=== PATIENT | male | born 1955 | race Caucasian/White ===

== ENCOUNTER 2018-10-28 23:43 | Emergency (ER) | payer OTHER ==
[2018-10-28 23:59] VITALS: BP 142/80; PULSE 78; TEMP 98.8; BMI 28.8
[2018-10-29] MEDS ORDERED: KETOROLAC TROMETHAMINE 30 MG/1 ML VIAL IM ONE (00:54)
[2018-10-29] MEDS ORDERED: KETOROLAC TROMETHAMINE 60 MG/2 ML VIAL ONE (00:56)
[2018-10-29] MEDS ORDERED: diazePAM 5 MG TABLET ONE (01:02)
[2018-10-29] MEDS ORDERED: diazePAM 5 MG TABLET PO ONE (01:02)
[2018-10-29 01:28] LABS: BASO % 0.4 % (0-2.0); EOS % 4.2 % (0-4.5); HEMATOCRIT 38.2 % (35.4-49); HEMOGLOBIN 13.8 GM/dL (11.7-16.9); LYMPH % 9.4 % (8-40); MCH 32.3 pg (25.7-33.7); MCHC 36.1 g/dl (32.0-35.9); MEAN CELL VOLUME 89.6 fl (80-96); MEAN PLT VOLUME 7.7 fl (7.5-11.1); MONO % 13.3 % (3.8-10.2); NEUT % 72.7 % (42.8-82.8); PLATELET COUNT 217 K/MM3 (134-434); RBC 4.27 M/mm3 (4.00-5.60); RDW 12.9 % (11.9-15.9); WHITE BLOOD COUNT 8.5 K/mm3 (4.0-10.0)
--- NOTE | 2018-10-29 01:50 | PDOC ---
History of Present Illness - General Chief Complaint: Pain Stated Complaint: Head/Neck problem Time Seen by Provider: 10/29/18 00:15 History Source: Patient Exam Limitations: No Limitations Past History - Past Medical History Allergies/Adverse Reactions: Allergies Allergy/AdvReac Type Severity Reaction Status Date / Time meperidine HCl [From Demerol] Allergy Severe SYNCOPE Verified 10/28/18 23:56 Home Medications: Ambulatory Orders Losartan Potassium [Cozaar] 100 mg PO DAILY 05/15/13 Naproxen [Naprosyn -] 500 mg PO BID #20 tablet 06/21/16 Amlodipine Besylate 5 mg PO DAILY 10/29/18 Diazepam [Valium] 5 mg PO Q8H PRN #12 tablet MDD 3 10/29/18 Ezetimibe 10 mg PO DAILY 10/29/18 Hydrochlorothiazide 12.5 mg PO DAILY 10/29/18 Metformin HCl [Glucophage] 500 mg PO DAILY 10/29/18 Metoprolol Tartrate 50 mg PO DAILY 10/29/18 Rosuvastatin Calcium 10 mg PO DAILY 10/29/18 COPD: No Diabetes: Yes HTN: Yes Hypercholesterolemia: Yes - Surgical History Appendectomy: Yes - Immunization History Immunization Up to Date: Yes - Suicide/Smoking/Psychosocial Hx Smoking Status: No Smoking History: Never smoked Have you smoked in the past 12 months: No Number of Cigarettes Smoked Daily: 0 Information on smoking cessation initiated: No Hx Alcohol Use: No Drug/Substance Use Hx: No Substance Use Type: None *Physical Exam - Vital Signs Last Vital Signs Temp Pulse Resp BP Pulse Ox 98.8 F 78 20 142/80 97 10/28/18 23:56 10/28/18 23:56 10/28/18 23:56 10/28/18 23:56 10/28/18 23:56 - Physical Exam General Appearance: No: Apparent Distress HEENT: positive: EOMI, MARYSOL Neck: positive: Decreased range of motion, Rigidity, Other (Patient with pain on movement of neck; particularly with pain along L lateral aspect of neck, no midline tenderness noted). negative: Tender midline Respiratory/Chest: positive: Lungs Clear, Normal Breath Sounds. negative: Respiratory Distress Cardiovascular: positive: Regular Rhythm, Regular Rate, S1, S2. negative: Murmur Gastrointestinal/Abdominal: positive: Normal Bowel Sounds, Soft. 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 NML intact, Fully Oriented, Alert, Normal Mood/ Affect, Normal Response, Motor Strength 5/5 Moderate Sedation - Procedure Monitoring Vital Signs: Procedure Monitoring Vital Signs Temperature 98.8 F 10/28/18 23:56 Pulse Rate 78 10/28/18 23:56 Respiratory Rate 20 10/28/18 23:56 Blood Pressure 142/80 10/28/18 23:56 O2 Sat by Pulse Oximetry (%) 97 10/28/18 23:56 ED Treatment Course - LABORATORY CBC & Chemistry Diagram: 10/29/18 01:18 10/29/18 01:18 - ADDITIONAL ORDERS Additional order review: 10/29/18 01:18 RBC 4.27 MCV 89.6 MCHC 36.1 H RDW 12.9 MPV 7.7 Neutrophils % 72.7 D Lymphocytes % 9.4 D Monocytes % 13.3 H Eosinophils % 4.2 Basophils % 0.4 - Medications Given in the ED: ED Medications Discontinued Medications Generic Name Dose Route Start Last Admin Trade Name Araceli PRN Reason Stop Dose Admin Diazepam 5 mg 10/29/18 01:02 10/29/18 01:16 Valium - PO 10/29/18 01:03 5 mg ONCE ONE Administration Ketorolac Tromethamine 30 mg 10/29/18 00:54 10/29/18 00:59 Toradol Injection - IM 10/29/18 00:55 30 mg ONCE ONE Administration Medical Decision Making - Medical Decision Making 63 y/o M hx of HTN, HLD, pre DM, sciatica, C4-C5 herniated disc presents with neck stiffness that started at 5 PM. Denies trauma. Mentions having some URI symptoms for the past 4 days with dry cough, nasal congestion and sore throat. Mentions he usually gets sick at least once a year and this felt like his usual cold; was taking cough medication at home with some improvement in cough. However, neck stiffness just came about abruptly. Took an Alleve around 5 PM without much improvement so came to ED. Denies fever, sob, cp, abd pain, n/v, numbness/tingling/weakness of extremities. Initial concern for meningitis given stiffness on exam though patient afebrile Patient given Toradol and Valium. Labs drawn with no leukocytosis noted; minimally elevated LFTs noted which patient advised to f/u with his PCP for. On reassessment, patient felt better and able to move his neck a lot better than before. Will D/C patient on Valium Return precautions discussed 10/29/18 01:50 *DC/Admit/Observation/Transfer Diagnosis at time of Disposition: Muscle spasm - Discharge Dispostion Disposition: HOME Condition at time of disposition: Improved Decision to Admit order: No - Prescriptions Prescriptions: Diazepam [Valium] 5 mg PO Q8H PRN #12 tablet MDD 3 PRN Reason: Muscle Spasms - Referrals Referrals: Mark Paiz MD [Primary Care Provider] - 2 Days - Patient Instructions Additional Instructions: Thank you for choosing [facility]. It was a pleasure taking care of you. You were seen here for likely muscle spasm. You may take Motrin 600 mg every 4 hours by mouth as needed for mild to moderate pain. Take Motrin with food. Take Valium as needed for muscle spasms. This medication can make you drowsy. Please follow-up with your primary care doctor in a few days. Return to the Emergency Department if your symptoms worsen or persist, you have fever, increased stiffness of neck, shortness of breath, chest pain, severe abdominal pain, weakness of extremities (arms and/or legs), changes in vision or walking or other concerning symptoms. - Post Discharge Activity
[2018-10-29 02:06] LABS: ALBUMIN 3.5 g/dl (3.4-5.0); ALK PHOS 108 U/L (45-117); ANION GAP 6 MMOL/L (8-16); BILIRUBIN,TOTAL 0.5 mg/dL (0.2-1); BLOOD UREA NITROGEN 20 mg/dL (7-18); CALCIUM 8.6 mg/dL (8.5-10.1); CHLORIDE 100 mmol/L (98-107); CO2 30 mmol/L (21-32); CREATININE 1.3 mg/dL (0.55-1.3); GLUCOSE,RANDOM 130 mg/dL (74-106); POTASSIUM 4.1 mmol/L (3.5-5.1); SGOT/AST 80 U/L (15-37); SGPT/ALT 82 U/L (13-61); SODIUM 136 mmol/L (136-145); TOT PROT 7.2 g/dl (6.4-8.2)
== END 2018-10-29 02:52 | disposition home or self-care (01) ==
LOC: JER 23:43
PROC: 3E0233Z Introduction of Anti-inflammatory into Muscle, Percutaneous Approach (ICD-10-PCS; principal; 2018-10-28)
DX: M62.838 Other muscle spasm (principal); M50.221 Other cervical disc displacement at C4-C5 level; I10 Essential (primary) hypertension; E78.00 Pure hypercholesterolemia, unspecified; E11.9 Type 2 diabetes mellitus without complications; Z79.84 Long term (current) use of oral hypoglycemic drugs; M54.30 Sciatica, unspecified side
CPT/HCPCS: 36415; 80053; 85025; 87070; 87880; 99282-25

== ENCOUNTER 2018-10-29 17:17 | Inpatient (IN) | payer OTHER ==
--- NOTE | 2018-10-29 17:50 | PDOC ---
Rapid Medical Evaluation Chief Complaint: Pain, Acute Time Seen by Provider: 10/29/18 17:46 Medical Evaluation: Allergies Allergy/AdvReac Type Severity Reaction Status Date / Time meperidine HCl [From Demerol] Allergy Severe SYNCOPE Verified 10/28/18 23:56 10/29/18 17:47 I have performed a brief in-person evaluation of this patient. The patient presents with a CC of: neck pain HPI: Pt is a 63 YO male who states "I think I coughed and I now have neck pain x 2 days." Pt denies injury/trauma. Pt denies hx of IV drug use. Denies fever. Pain is a 10/10. 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 Pertinent PE: Skin: Clear Lungs: Clear Heart: RRR Abd: Soft nontender MS. Moves all extremities Neuro: Alert Psych: Age appropriate. The patient will proceed to main side for further evaluation. Discharge Disposition - Diagnosis Neck pain - Referrals - Patient Instructions - Post Discharge Activity
[2018-10-29 17:52] VITALS: BMI 28.8
--- NOTE | 2018-10-29 18:27 | PDOC ---
History of Present Illness - General Chief Complaint: Pain, Acute Stated Complaint: PCP SENT/HEAD AND NECK PAIN Time Seen by Provider: 10/29/18 17:46 - History of Present Illness Initial Comments: The patient is a 63M w/ a history of HTN and diverticulosis who presents for evaluation of 2d of neck pain and occipital FERGUSON. The patient reports that he has had a 'hacking' cough since Saturday. He states yesterday he began to experience L sided neck pain mino with coughing. He was evaluated here, had no leukocytosis , was treated with toradol and was discharged. Presents today with worsening neck pain, b/l. Pain worse with turning head left and right and with cough Denies fevers/chill, vision changes, chest pain, SOB, abdominal pain, N/V/C/D, or changes in sensation 10/29/18 18:31 Past History - Past Medical History Allergies/Adverse Reactions: Allergies Allergy/AdvReac Type Severity Reaction Status Date / Time meperidine HCl [From Demerol] Allergy Severe SYNCOPE Verified 10/29/18 17:47 Home Medications: Ambulatory Orders Losartan Potassium [Cozaar] 100 mg PO DAILY 05/15/13 Naproxen [Naprosyn -] 500 mg PO BID #20 tablet 06/21/16 Amlodipine Besylate 5 mg PO DAILY 10/29/18 Diazepam [Valium] 5 mg PO Q8H #12 tablet MDD 3 10/29/18 Ezetimibe 10 mg PO DAILY 10/29/18 Hydrochlorothiazide 12.5 mg PO DAILY 10/29/18 Metformin HCl [Glucophage] 500 mg PO DAILY 10/29/18 Metoprolol Tartrate 50 mg PO DAILY 10/29/18 Rosuvastatin Calcium 10 mg PO DAILY 10/29/18 COPD: No Diabetes: Yes HTN: Yes Hypercholesterolemia: Yes - Surgical History Appendectomy: Yes - Immunization History Immunization Up to Date: Yes - Suicide/Smoking/Psychosocial Hx Smoking Status: No Smoking History: Never smoked Have you smoked in the past 12 months: No Number of Cigarettes Smoked Daily: 0 Hx Alcohol Use: No Drug/Substance Use Hx: No Substance Use Type: None Review of Systems - Review of Systems Able to Perform ROS?: Yes Comments:: GENERAL/CONSTITUTIONAL: No fever or chills. No weakness HEAD, EYES, EARS, NOSE AND THROAT: No change in vision. No ear pain or discharge. CARDIOVASCULAR: No chest pain or shortness of breath RESPIRATORY: Denies cough, hemoptysis GASTROINTESTINAL: No nausea, vomiting, diarrhea or constipation GENITOURINARY: No dysuria, frequency, or change in urination MUSCULOSKELETAL: per HPI SKIN: No rash NEUROLOGIC: No headache, vertigo, loss of consciousness, or change in strength/ sensation ENDOCRINE: No increased thirst. No abnormal weight change HEMATOLOGIC/LYMPHATIC: No anemia, easy bleeding, or history of blood clots ALLERGIC/IMMUNOLOGIC: No hives or skin allergy 10/29/18 18:24 Is the patient limited Croatian proficient: No *Physical Exam - Vital Signs Last Vital Signs Temp Pulse Resp BP Pulse Ox 99.3 F 95 H 19 136/84 97 10/29/18 17:48 10/29/18 17:48 10/29/18 17:48 10/29/18 17:48 10/29/18 17:48 - Physical Exam Comments: GENERAL: Awake, alert, and fully oriented, in no acute distress HEAD: No signs of trauma, normocephalic, atraumatic EYES: PERRLA, EOMI, sclera anicteric, conjunctiva clear ENT: Hearing grossly normal, nares patent, oropharynx clear without exudates. Moist mucosa LUNGS: No distress, speaks full sentences, clear to auscultation bilaterally HEART: Regular rate and rhythm, normal S1 and S2, no murmurs appreciated, peripheral pulses normal and equal bilaterally ABDOMEN: Soft, nontender, normoactive bowel sounds. No guarding, no rebound EXTREMITIES : Normal inspection, Normal range of motion, no edema. No clubbing or cyanosis NEUROLOGICAL: Cranial nerves II through XII grossly intact. Normal speech, normal gait, no focal sensorimotor deficits SKIN: Warm, Dry, normal turgor, no rashes or lesions noted 10/29/18 18:25 Moderate Sedation - Procedure Monitoring Vital Signs: Procedure Monitoring Vital Signs Temperature 99.3 F 10/29/18 17:48 Pulse Rate 95 H 10/29/18 17:48 Respiratory Rate 19 10/29/18 17:48 Blood Pressure 136/84 10/29/18 17:48 O2 Sat by Pulse Oximetry (%) 97 10/29/18 17:48 ED Treatment Course - LABORATORY CBC & Chemistry Diagram: 10/31/18 06:15 10/31/18 06:15 Medical Decision Making - Medical Decision Making The patient is a 63M w/ a history of diverticulosis who presents for 2days of worsening paraspinous neck pain s/p 5d of vigorous coughing sent in by PCP for CT and LP 10/29/18 18:26 No leukocytosis No anemia Sent for CT Tylenol for pain 10/29/18 19:[address] (without contrast) 10/29/2018 @ 2039 The soft tissue structures demonstrate no discrete noncontrast pathology. If there is ongoing symptomatology or palpable abnormality MRI evaluation is suggested, nonemergent unless otherwise clinically indicated. Moderate C5-C6 degenerative disc space narrowing is noted. No facet arthropathy is seen. Mild to moderate left C5-C6 foraminal stenosis is noted. No central canal stenosis HEAD CT WITHOUT CONTRAST 10/29/2018 No intraparenchymal hemorrhage is seen. There is no CT evidence of subarachnoid hemorrhage. Correlate clinically. No extra-axial fluid collection is noted. There is no obvious mass lesion on noncontrast imaging. No definite abnormal attenuation is seen. The ventricles and cisterns appear unremarkable. No calvarial defect is noted. Mild bilateral ethmoid and right maxillary sinus mucosal thickening is seen. A 1 cm right maxillary sinus mucus retention cyst/polyp is noted. Impression: No CT evidence of acute intracranial pathology. 10/29/18 21:27 Cr 1.4 near baseline mild transaminitis lytes wnl 10/29/18 21:46 s/p LP with clear tap, sent for CSF profile, culture, protein, HSV 10/29/18 23:04 I have transferred care of the patient to Dr. Churchill and discussed the clinical presentation, work-up and ED course thus far. *DC/Admit/Observation/Transfer Diagnosis at time of Disposition: Neck pain - Discharge Dispostion Condition at time of disposition: Good Decision to Admit order: Yes - Referrals - Patient Instructions - Post Discharge Activity
[2018-10-29] MEDS ORDERED: KETOROLAC TROMETHAMINE 30 MG/1 ML VIAL IM ONE (18:49)
[2018-10-29] MEDS ORDERED: ACETAMINOPHEN 325 MG TABLET (FP) PO ONE (18:51)
[2018-10-29] MEDS ORDERED: ACETAMINOPHEN 1000 MG/100 ML VIAL (NON FORMULARY) IVPB ONE (18:52)
[2018-10-29] MEDS ORDERED: ACETAMINOPHEN INJECTION 100 ML IVPB ONE (19:04)
[2018-10-29 19:21] LABS: BASO % 0.4 % (0-2.0); EOS % 3.5 % (0-4.5); HEMATOCRIT 40.6 % (35.4-49); HEMOGLOBIN 14.4 GM/dL (11.7-16.9); LYMPH % 8.3 % (8-40); MCHC 35.6 g/dl (32.0-35.9); MEAN CELL VOLUME 89.9 fl (80-96); MONO % 13.3 % (3.8-10.2); NEUT % 74.5 % (42.8-82.8); PLATELET COUNT 256 K/MM3 (134-434); RBC 4.51 M/mm3 (4.00-5.60); RDW 12.9 % (11.9-15.9); WHITE BLOOD COUNT 9.2 K/mm3 (4.0-10.0)
[2018-10-29 20:01] LABS: ALK PHOS 122 U/L (45-117); ANION GAP 8 MMOL/L (8-16); BILIRUBIN,TOTAL 0.5 mg/dL (0.2-1); BLOOD UREA NITROGEN 21 mg/dL (7-18); CALCIUM 8.9 mg/dL (8.5-10.1); CHLORIDE 101 mmol/L (98-107); CO2 29 mmol/L (21-32); CREATININE 1.4 mg/dL (0.55-1.3); GLUCOSE,RANDOM 126 mg/dL (74-106); POTASSIUM 4.1 mmol/L (3.5-5.1); SGOT/AST 65 U/L (15-37); SGPT/ALT 94 U/L (13-61); SODIUM 139 mmol/L (136-145); TOT PROT 7.9 g/dl (6.4-8.2)
[2018-10-29] MEDS ORDERED: KETOROLAC TROMETHAMINE 30 MG/1 ML VIAL IVPUSH ONE (21:32)
[2018-10-29] MEDS ORDERED: KETOROLAC TROMETHAMINE 30 MG/1 ML VIAL ONE (21:34)
[2018-10-29] MEDS ORDERED: MIDAZOLAM HCL 2 MG/2 ML SINGLE DOSE VIAL IVPUSH ONE (21:51)
[2018-10-29] MEDS ORDERED: MIDAZOLAM HCL 2 MG/2 ML SINGLE DOSE VIAL ONE (21:52)
--- NOTE | 2018-10-29 22:02 | PDOC ---
Attending Attestation - Resident Resident Name: Damian Parker - ED Attending Attestation I have performed the following: I have examined & evaluated the patient, The case was reviewed & discussed with the resident, I agree w/resident's findings & plan, Exceptions are as noted - HPI HPI: 10/29/18 22:03 63yo M hx HTN, HL, NIDDM presents to the ED with worsening neck pain and stiffness for 3 days. Pt reports neck pain initially began on L side, but now is on R side of neck. Reports pain when moving neck in any direction. Unable to sleep. Was seen in the ED yesterday and treated with toradol and valium which provided relief. When the pain came back at home, he saw Dr. Paiz who checked a CXR and sent the pt back to the ED as he was barely able to move his neck. Dr. Paiz called the patient in to me, he requested CT of head and neck and LP if those were negative. Pt reports having a bad cough for 4 days which exacerbates his neck pain. He also reports a subjective fever 4 days ago but none since. Denies blurry vision, photophobia, focal weakness or numbness, abd pain, CP, SOB, rashes. Denies sick contacts or recent travel. - Physicial Exam PE: 10/29/18 23:46 GENERAL: Awake, alert, and fully oriented, in no acute distress HEAD: No signs of trauma EYES: PERRLA, EOMI, sclera anicteric, conjunctiva clear ENT: Oropharynx clear without exudates. Moist mucosa NECK: +ttp b/l paraspinally. No midline ttp. Unable to range neck in any direction without pain. LUNGS: Breath sounds equal, clear to auscultation bilaterally. No wheezes, and no crackles HEART: Regular rate and rhythm, normal S1 and S2, no murmurs, rubs or gallops ABDOMEN: Soft, nontender, normoactive bowel sounds. No guarding, no rebound. No masses EXTREMITIES: Normal range of motion, no edema. No cords, erythema, or tenderness NEUROLOGICAL: Normal speech, cranial nerves intact, 5/5 strength in all 4 extremities, normal sensation to light touch in all 4 extremities, normal cerebellar exam, normal gait, normal tone BACK: no midline thoracic or lumbar ttp SKIN: Warm, Dry, normal turgor, no rashes or lesions noted. - Medical Decision Making 10/29/18 23:50 63yo M presents to the ED with worsening neck pain and neck stiffness in the setting of resolving URI sxs. Vitals wnl. Exam with paraspinal cervical neck pain and pain with all ROM of the neck. DDx includes meningitis, unlikely bacterial as no fevers since Saturday, no AMS, no white count but could be viral. Could also be musculoskeletal, maybe strain from coughing a lot over the last few days. CTH and CT soft tissue showed no acute pathology Discussed results with Dr. Paiz who agreed with plan to LP Risks and benefits of LP discussed with pt, pt signed consent Because of neck stiffness and difficulty positioning patient, 2mg of versed IV given with good response LP done by Dr. Parker under my direct supervision, OP was 19, fluid clear Pt positioned supine to prevent headache, covered empirically with vanc, ceftriaxone, ampicillin, and acyclovir until cultures return Will admit for f/u on CSF cultures and for further mgmt of neck pain Case discussed with admitting team by Dr. Churchill, pt accepted for admission to Dr. Cooper Case discussed in detail with admitting physician including history, physical exam and ancillary studies. Admitting physician has assumed care for the patient, will follow all pending diagnostics and will complete the evaluation and treatment.
[2018-10-29 23:19] LABS: CSF APPEARANCE CLEAR; CSF COLOR COLORLESS
[2018-10-29 23:29] LABS: CSF WBC 9
--- NOTE | 2018-10-29 23:33 | PDOC ---
*Physical Exam - Vital Signs Last Vital Signs Temp Pulse Resp BP Pulse Ox 99.3 F 79 18 105/71 97 10/29/18 17:48 10/29/18 22:51 10/29/18 22:51 10/29/18 22:51 10/29/18 22:51 ED Treatment Course - LABORATORY CBC & Chemistry Diagram: 10/29/18 18:54 10/29/18 18:54 - ADDITIONAL ORDERS Additional order review: Laboratory Results 10/29/18 18:54 Sodium 139 Potassium 4.1 Chloride 101 Carbon Dioxide 29 Anion Gap 8 BUN 21 H Creatinine 1.4 H Creat Clearance w eGFR 51.02 Random Glucose 126 H Calcium 8.9 Total Bilirubin 0.5 AST 65 H ALT 94 H Alkaline Phosphatase 122 H Creatine Kinase 253 Creatine Kinase Index 0.6 CK-MB (CK-2) 1.6 Total Protein 7.9 Albumin 4.0 10/29/18 18:54 RBC 4.51 MCV 89.9 MCHC 35.6 RDW 12.9 MPV 8.0 Neutrophils % 74.5 Lymphocytes % 8.3 Monocytes % 13.3 H Eosinophils % 3.5 Basophils % 0.4 - Medications Given in the ED: ED Medications Discontinued Medications Generic Name Dose Route Start Last Admin Trade Name Freq PRN Reason Stop Dose Admin Acetaminophen 1,000 mg 10/29/18 18:52 10/29/18 19:07 Ofirmev Injection - IVPB 10/29/18 18:53 1,000 mg ONCE ONE Administration Ketorolac Tromethamine 30 mg 10/29/18 21:32 10/29/18 21:36 Toradol Injection - IVPUSH 10/29/18 21:33 30 mg ONCE ONE Administration Midazolam HCl 2 mg 10/29/18 21:51 10/29/18 22:13 Versed - IVPUSH 10/29/18 21:52 2 mg ONCE ONE Administration Medical Decision Making - Medical Decision Making 10/29/18 23:[address] Parker for further evaluation. 10/29/18 23:54 Patient pending LP results. Admitting for observation for LP f/u and IV Pain control as needed. 10/30/18 00:40 IV ABX for meningitis started prophylactically. Patient admitted for obs. *DC/Admit/Observation/Transfer Diagnosis at time of Disposition: Neck pain - Discharge Dispostion Decision to Admit order: Yes - Referrals Referrals: Mark Paiz MD [Primary Care Provider] - - Patient Instructions - Post Discharge Activity
[2018-10-29 23:58] LABS: INR 1.07 (0.83-1.09); PROTHROMBIN TIME (PATIENT) 12.6 SEC (9.7-13.0)
[2018-10-30] LABS: ACTIVATED PTT 25.9 SECONDS (25.2-36.5)
[2018-10-30] MEDS ORDERED: VANCOMYCIN 1 GRAM (PRE-DOCKED) 1,000 MG/250 ML BAG IVPB ONE ×3 (00:33→11:36)
[2018-10-30] MEDS ORDERED: CEFTRIAXONE 2 GM-D5W BAG 2 GM/50 ML BAG IVPB ONE (00:33)
--- NOTE | 2018-10-30 00:34 | PN ---
Teaching Attending Note Name of Resident: Abraham Linder ATTENDING PHYSICIAN STATEMENT I saw and evaluated the patient. I reviewed the resident's note and discussed the case with the resident. I agree with the resident's findings and plan as documented. SUBJECTIVE: Patient is a 63 year old man with history of HTN, HLD and NIDDM who presents to the ER with worsening neck pain and stiffness for 3 days. Neck pain began on L side, but now is on R side of neck. Reports pain when moving neck in any direction. Unable to sleep. Was seen in the ER yesterday and treated with toradol and valium which provided relief. When the pain came back at home, he saw Dr. Paiz who checked a CXR and sent him back to the ER as he was barely able to move his neck. Patient reports having a bad cough for 4 days which exacerbates his neck pain. He also reports a subjective fever 4 days ago but none since. Denies blurry vision, photophobia, focal weakness or numbness, abd pain, CP, SOB, rashes. 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 Denies sick contacts, recent swimming in fresh water or recent travel. OBJECTIVE: Alert Vital Signs Period Temp Pulse Resp BP Sys/Cuevas Pulse Ox Last 24 Hr 99.3 F 71-95 16-19 92-136/45-84 95-99 HEENT: No Jaundice, eye redness or discharge, PERRLA, EOMI. Normocephalic, atraumatic. External ears are normal and hearing is grossly intact. No nasal discharge. Neck: Supple, tenderness back of neck. Limited ROM of neck and pain with movement. No palpable adenopathy or thyromegaly. No JVD Chest: Good effort. Clear to auscultation and percussion. Heart: Regular. No S3, rub or murmur Abdomen: Not distended, soft, nontender and no HSM. No rebound or guarding. Normoactive bowel sounds. Ext: Peripheral pulses intact. No leg edema. Skin: Warm and dry. No petechiae, rash or ecchymosis. Neuro: Alert. Oriented x3. CN 2-12 grossly intact. Sensation grossly intact in all four extremities and DTR are symmetric. Home Medications Medication Instructions Recorded Losartan Potassium [Cozaar] 100 mg PO DAILY 05/15/13 Naproxen [Naprosyn -] 500 mg PO BID #20 tablet 06/21/16 Amlodipine Besylate 5 mg PO DAILY 10/29/18 Diazepam [Valium] 5 mg PO Q8H #12 tablet MDD 3 10/29/18 Ezetimibe 10 mg PO DAILY 10/29/18 Hydrochlorothiazide 12.5 mg PO DAILY 10/29/18 Metformin HCl [Glucophage] 500 mg PO DAILY 10/29/18 Metoprolol Tartrate 50 mg PO DAILY 10/29/18 Rosuvastatin Calcium 10 mg PO DAILY 10/29/18 Abnormal Lab Results 10/29/18 10/29/18 18:54 18:54 Monocytes % 13.3 H BUN 21 H Creatinine 1.4 H Random Glucose 126 H AST 65 H ALT 94 H Alkaline Phosphatase 122 H ASSESSMENT AND PLAN: 1. Neck Pain: rule out meningitis - Head CT scan does not show any acute abnormality and neck CT shows C5-6 disc space narrowing and left foraminal stenosis. Initial CSF analysis revealed 9 WBCs - no differential yet, and gram stain as well as other studies pending. CSF also sent for HSV PCR. Will treat empirically with meningitis doses of IV vancomycin, rocephin, ampicillin and acyclovir. Treat with Decadron and consult ID and Neurology. Elevated LFTs are unexplained. Will get upper abdominal sonogram, hepatitis serology and trend LFTs. 2. DM - For now, we will hold the home diabetes drugs and implement sliding scale insulin regimen. Provide comprehensive diabetes care with patient teaching and counseling about the importance of euglycemia, eye care and foot care. 3. BRY - Etiology unclear. Will get stat UA, hydrate gently and get kdney sonogram. Hold metformin and avoid nephrotoxic agents such as NSAIDS, aminoglycosides, contrast dyes and certain Alternative medicine products. 4. DVT prophylaxis - Heparin 5000u sq tid. 5. Advance directives - Full code
[2018-10-30] MEDS ORDERED: AMPICILLIN SODIUM 250 MG VIAL IVPUSH ONE (00:39)
[2018-10-30] MEDS ORDERED: ACYCLOVIR INJECTION 900 MG in DEXTROSE 5%-WATER - 100 ML IVPB ONE (01:21)
[2018-10-30 01:30] LABS: URINE APPEARANCE CLEAR; URINE BILIRUBIN NEGATIVE (<2.0 mg/dL); URINE COLOR YELLOW; URINE GLUCOSE (UA) NEGATIVE (NEGATIVE); URINE KETONE NEGATIVE (NEGATIVE); URINE LEUK ESTERASE NEGATIVE (NEGATIVE); URINE NITRITE NEGATIVE (NEGATIVE); URINE PROTEIN NEGATIVE (NEGATIVE); URINE UROBILINOGEN NEGATIVE mg/dL (0.2-1.0)
[2018-10-30] MEDS ORDERED: VANCOMYCIN 1,250 MG in DEXTROSE 5%-WATER - 250 ML IVPB SCH (01:30)
[2018-10-30] MEDS ORDERED: SODIUM CHLORIDE 1,000 ML IV SCH (01:45)
[2018-10-30] MEDS ORDERED: ACYCLOVIR INJECTION 900 MG in DEXTROSE 5%-WATER - 250 ML IVPB ONE (02:00)
[2018-10-30] MEDS ORDERED: AMPICILLIN - 2 GM in SODIUM CHLORIDE 100 ML IVPB SCH (02:00)
[2018-10-30 02:08] LABS: BF GLUCOSE (CSF ONLY) 72 mg/dL (40-70)
[2018-10-30 02:09] LABS: BF GLUCOSE (CSF ONLY) 72 mg/dL (40-70)
--- NOTE | 2018-10-30 02:49 | HP ---
CHIEF COMPLAINT: Neck pain and stiffness, recent URI symptoms PCP: Izabel HISTORY OF PRESENT ILLNESS: 63 yo male with PMH HTN, Diverticulosis, NIDDM presents with 2 days of neck pain and stiffness uncontrolled by valium and NSAIDs following 5 days of URI symptoms. He states 5 days ago he noted cold symptoms consisting of some congestion, a cough productive of yellow mucus, possible fevers. He states over the last two or three days his cough and cold symptoms have been improving, though his cough is lingering still. Yesterday during the day he states he started developing severe left sided neck pain. He presented to the ED for evaluation and was given Toradol and Valium with some relief. He was afebrile without any leukocytosis at that time. He states he was given a script for valium as well as ibuprofen which he filled and took as prescribed. He endorses feeling better, though not resolved this AM when he awoke but states that the pain began to worsen severely throughout the day now including the right side of his neck which was not involved yesterday, and was not relieved by the valium and ibuprofen. He went to see his pcp who he states did X-rays of his chest and spine which were normal. When the pain continued to worsen he was sent by his PCP for further evaluation including a spinal tap to r/o meningitis. 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 ER course was notable for: (1) CSF fluid with 9 WBCs 35 RBCs (2) Tylenol, Toradol, Versed (for the spinal tap procedure) (3) Recent Travel: Denies PAST MEDICAL HISTORY: HTN, Diverticulosis, NIDDM PAST SURGICAL HISTORY: Social History: Smoking: Denies Alcohol: Denies Drugs: Denies Family History: Allergies meperidine HCl [From Demerol] Allergy (Severe, Verified 10/29/18 17:47) [facility] MEDICATIONS: Home Medications Medication Instructions Recorded Losartan Potassium [Cozaar] 100 mg PO DAILY 05/15/13 Naproxen [Naprosyn -] 500 mg PO BID #20 tablet 06/21/16 Amlodipine Besylate 5 mg PO DAILY 10/29/18 Diazepam [Valium] 5 mg PO Q8H #12 tablet MDD 3 10/29/18 Ezetimibe 10 mg PO DAILY 10/29/18 Hydrochlorothiazide 12.5 mg PO DAILY 10/29/18 Metformin HCl [Glucophage] 500 mg PO DAILY 10/29/18 Metoprolol Tartrate 50 mg PO DAILY 10/29/18 Rosuvastatin Calcium 10 mg PO DAILY 10/29/18 REVIEW OF SYSTEMS CONSTITUTIONAL: Absent: fever, chills, diaphoresis, generalized weakness, malaise, loss of appetite, weight change HEENT: Absent: rhinorrhea, nasal congestion, throat pain, throat swelling, difficulty swallowing, mouth swelling, ear pain, eye pain, visual changes CARDIOVASCULAR: Absent: chest pain, syncope, palpitations, irregular heart rate, lightheadedness , peripheral edema RESPIRATORY: Absent: cough, shortness of breath, dyspnea with exertion, orthopnea, wheezing, stridor, hemoptysis GASTROINTESTINAL: Absent: abdominal pain, abdominal distension, nausea, vomiting, diarrhea, constipation, melena, hematochezia GENITOURINARY: Absent: dysuria, frequency, urgency, hesitancy, hematuria, flank pain, genital pain MUSCULOSKELETAL: neck pain Absent: myalgia, arthralgia, joint swelling, back pain, SKIN: Absent: rash, itching, pallor HEMATOLOGIC/IMMUNOLOGIC: Absent: easy bleeding, easy bruising, lymphadenopathy, frequent infections ENDOCRINE: Absent: unexplained weight gain, unexplained weight loss, heat intolerance, cold intolerance NEUROLOGIC: headache Absent: , focal weakness or paresthesias, dizziness, unsteady gait, seizure, mental status changes, bladder or bowel incontinence PSYCHIATRIC: Absent: anxiety, depression, suicidal or homicidal ideation, hallucinations. PHYSICAL EXAMINATION Vital Signs - 24 hr 10/29/18 10/29/18 10/29/18 17:48 22:06 22:13 Temperature 99.3 F Pulse Rate 95 H Pulse Rate [ 82 Left Radial] Pulse Rate [ 82 Left Upper Arm] Respiratory 19 16 Rate Respiratory 16 Rate [Left Upper Arm] Blood Pressure 136/84 Blood Pressure 109/68 [Left Arm] Blood Pressure 109/68 [Left Upper Arm ] O2 Sat by Pulse 97 99 Oximetry (%) O2 Sat by Pulse 99 Oximetry (%) [ Left Upper Arm] 10/29/18 10/29/18 10/30/18 22:29 22:51 00:17 Temperature Pulse Rate Pulse Rate [ 71 Left Radial] Pulse Rate [ 86 79 Left Upper Arm] Respiratory 16 Rate Respiratory 16 18 Rate [Left Upper Arm] Blood Pressure Blood Pressure [Left Arm] Blood Pressure 92/45 L 105/71 [Left Upper Arm ] O2 Sat by Pulse 95 Oximetry (%) O2 Sat by Pulse 97 97 Oximetry (%) [ Left Upper Arm] 10/30/18 10/30/18 00:44 00:53 Temperature 97.6 F Pulse Rate Pulse Rate [ 78 Left Radial] Pulse Rate [ Left Upper Arm] Respiratory 16 Rate Respiratory Rate [Left Upper Arm] Blood Pressure Blood Pressure 122/92 [Left Arm] Blood Pressure [Left Upper Arm ] O2 Sat by Pulse 97 98 Oximetry (%) O2 Sat by Pulse Oximetry (%) [ Left Upper Arm] GENERAL: A&O, no acute distress HEAD: Normocephalic, atraumatic. EYES: PERRL, no scleral icterus EARS, NOSE, THROAT: oropharynx clear without exudates. Moist mucous membranes. NECK: supple without lymphadenopathy, tender to palpation posteriorly worse near the occiput. Brudzinski sign negative LUNGS: CTA b/l, no crackles or wheezes HEART: Regular rate and rhythm, normal S1 and S2 without murmur ABDOMEN: Soft, nontender to palpation, normoactive bowel sounds EXTREMITIES: 2+ pulses, warm, well-perfused. No peripheral edema. NEUROLOGICAL: Cranial nerves II-XII grossly intact. Normal speech. PSYCHIATRIC: Cooperative. Good eye contact. Appropriate mood and affect. SKIN: Warm, dry, no rashes or lesions noted Laboratory Results - last 24 hr 10/29/18 10/29/18 10/29/18 18:54 18:54 22:40 WBC 9.2 RBC 4.51 Hgb 14.4 Hct 40.6 MCV 89.9 MCH 32.0 MCHC 35.6 RDW 12.9 Plt Count 256 MPV 8.0 Absolute Neuts (auto) 6.8 Neutrophils % 74.5 Lymphocytes % 8.3 Monocytes % 13.3 H Eosinophils % 3.5 Basophils % 0.4 Nucleated RBC % 0 PT with INR 12.60 INR 1.07 PTT (Actin FS) 25.9 Sodium 139 Potassium 4.1 Chloride 101 Carbon Dioxide 29 Anion Gap 8 BUN 21 H Creatinine 1.4 H Creat Clearance w eGFR 51.02 Random Glucose 126 H Calcium 8.9 Total Bilirubin 0.5 AST 65 H ALT 94 H Alkaline Phosphatase 122 H Creatine Kinase 253 Creatine Kinase Index 0.6 CK-MB (CK-2) 1.6 Total Protein 7.9 Albumin 4.0 Urine Color Urine Appearance Urine pH Ur Specific [place] Urine Protein Urine Glucose (UA) Urine Ketones Urine Blood Urine Nitrite Urine Bilirubin Urine Urobilinogen Ur Leukocyte Esterase CSF Appearance CSF Color CSF WBC CSF RBC CSF Comment 10/29/18 10/29/18 10/30/18 23:00 23:00 01:18 WBC RBC Hgb Hct MCV MCH MCHC RDW Plt Count MPV Absolute Neuts (auto) Neutrophils % Lymphocytes % Monocytes % Eosinophils % Basophils % Nucleated RBC % PT with INR INR PTT (Actin FS) Sodium Potassium Chloride Carbon Dioxide Anion Gap BUN Creatinine Creat Clearance w eGFR Random Glucose Calcium Total Bilirubin AST ALT Alkaline Phosphatase Creatine Kinase Creatine Kinase Index CK-MB (CK-2) Total Protein Albumin Urine Color Yellow Urine Appearance Clear Urine pH 5.0 Ur Specific [place] 1.030 Urine Protein Negative Urine Glucose (UA) Negative Urine Ketones Negative Urine Blood Negative Urine Nitrite Negative Urine Bilirubin Negative Urine Urobilinogen Negative Ur Leukocyte Esterase Negative CSF Appearance Clear CSF Color Colorless CSF WBC 9 CSF RBC 35 CSF Comment ASSESSMENT/PLAN: 63 yo male with PMH HTN, Diverticulosis, NIDDM presents with 2 days of neck pain and stiffness uncontrolled by valium and NSAIDs following 5 days of URI symptoms Neck Stiffness R/O Meningitis -2 days Neck stiffness and pain following URI, r/o meningitis -Pt would clinically be much worse if bacterial and presenting with neck stiffness -CSF studies pending, noted with WBC 9, RBC 35, clear fluid -HSV pcr pending as well -Empiric Abx coverage started, can possibly d/c abx in AM if CSF results negative for acute meningitis -Vancomycin 1250 mg IV BID weight and renally dosed, Ampicillin 2 gm IV Q4 RADAR TESTER dosing, Ceftriaxone 2 gm IV BID RADAR TESTER dosing -Acyclovir 10 mg/kg (900mg) IV Q8 for what would more likely be viral meningitis -Pt received 1L NS in ED, will start NS @ 125 cc/hr for adequate hydration given starting acycovir HTN -Pt with episode of hypotension in ED and currently low b.p. -Will hold home meds for now, can restart as b.p improves/elevates Elevated BUN/Cr -Slow elevation noted over the last few visits -Worsening renal fx could be secondary to diabetes, though claims sugars well controlled -Will give adequate hydration, especially considering use of acyclovir -Avoid nephrotoxic drugs -Stat UA pending -consider renal US for further workup NIDDM -BGMs ACHS -Insulin Sliding Scale for Glycemic Control DVT Prophylaxis -Heparin 5000 units SQ TID FEN -Fluids: NS @ 125 cc/hr -Electrolytes: No electrolyte abnormalities, BMP in AM -Nutrition: Diabetic Na Controlled Diet Disposition Obs r/o meningitis, upgrade to Med/Surg pending CSF results Visit type - Emergency Visit Emergency Visit: Yes ED Registration Date: 10/30/18 Care time: The patient presented to the Emergency Department on the above date and was hospitalized for further evaluation of their emergent condition. - New Patient This patient is new to me today: Yes Date on this admission: 10/30/18 - Critical Care Critical Care patient: No
[2018-10-30] MEDS: AMPICILLIN - 2 GM in SODIUM CHLORIDE 100 ML IVPB SCH ×3 (03:02→09:31)
[2018-10-30] MEDS ORDERED: guaiFENesin 200 MG/10 ML 10 ML UNIT-DOSE CUPS PO PRN (03:52)
[2018-10-30] MEDS ORDERED: HEPARIN NA (PORCINE) 5,000 UNITS/ML 1ML VIAL ONE (05:49)
[2018-10-30] MEDS: HEPARIN NA (PORCINE) 5,000 UNITS/ML 1ML VIAL SQ SCH ×3 (05:57→21:07)
[2018-10-30] MEDS ORDERED: guaiFENesin 200 MG/10 ML 10 ML UNIT-DOSE CUPS ONE (05:59)
[2018-10-30 06:33] LABS: BASO % 0.3 % (0-2.0); EOS % 3.3 % (0-4.5); HEMATOCRIT 40.4 % (35.4-49); HEMOGLOBIN 13.3 GM/dL (11.7-16.9); LYMPH % 15.3 % (8-40); MCH 30.1 pg (25.7-33.7); MCHC 32.8 g/dl (32.0-35.9); MEAN CELL VOLUME 91.6 fl (80-96); MEAN PLT VOLUME 7.6 fl (7.5-11.1); NEUT % 69.1 % (42.8-82.8); PLATELET COUNT 205 K/MM3 (134-434); RBC 4.41 M/mm3 (4.00-5.60); RDW 12.7 % (11.9-15.9); WHITE BLOOD COUNT 7.7 K/mm3 (4.0-10.0)
[2018-10-30] MEDS ORDERED: morphine CARPU-JECT 4 MG/1 ML DISP.SYRIN IVPUSH ONE (06:41)
[2018-10-30] MEDS ORDERED: morphine SULFATE 4 MG/ML VIAL ONE (06:42)
[2018-10-30 06:58] LABS: ALBUMIN 3.1 g/dl (3.4-5.0); ALK PHOS 104 U/L (45-117); ANION GAP 6 MMOL/L (8-16); BILIRUBIN,TOTAL 0.5 mg/dL (0.2-1); BLOOD UREA NITROGEN 20 mg/dL (7-18); CALCIUM 7.9 mg/dL (8.5-10.1); CHLORIDE 104 mmol/L (98-107); CO2 29 mmol/L (21-32); CREATININE 1.2 mg/dL (0.55-1.3); GLUCOSE,RANDOM 107 mg/dL (74-106); PHOSPHOROUS 3.6 mg/dL (2.5-4.9); POTASSIUM 3.8 mmol/L (3.5-5.1); SGOT/AST 39 U/L (15-37); SGPT/ALT 67 U/L (13-61); SODIUM 139 mmol/L (136-145); TOT PROT 6.4 g/dl (6.4-8.2)
--- NOTE | 2018-10-30 08:48 | PN ---
Progress Note (short form) - Note Progress Note: Patient with intractable cervical spine spasm and occpital headache is feeling a little better. CT brain and Cervical spine reviewed. No obvious disc herniation or acute changes head CT reported. Had LP in ER and I believe results are not compatible with meningitis but await opinion ID MD. Will add Neurosurgical MD to evaluate persisting neck stiffness.
--- NOTE | 2018-10-30 10:23 | PN ---
Progress Note (short form) - Note Progress Note: NEUROSURGERY CONSULT DICTATED H/o HTN, Diverticulosis, NIDDM presents with 2 days of neck pain and stiffness x 5 days of URI symptoms. Had cold symptoms with congestion, productive cough and possible fevers. Developed severe left sided neck pain. Afebrile without leukocytosis. New R sided neck pain unrelieved by the valium and ibuprofen. PE: Tmax 98.8, VSS HEENT- NC/AT; Neck- supple; Cor- RRR; lungs- CTA B; Abd- benign; Ext- no sign of DVT A/A/Ox3 CN- intact; Motor- 5/5 without drift; Sensation- intact LT; DTR- 2+ CSF WBC 9, RBC 35, glucose 72 protein 29, lymphocytes [address]- no bleed or fx. No HCP C spine CT- preservation of lordosis; C5-6 DDD with foramenal stenosis L > R Brain MRI 2015- mild atrophy, mild periventricular small vessel disease Possible viral meningitis C5-6 DDD Brain MRI with clint to r/o basal enhancement; C spine MRI non-contrast to assess C5-6 DDD/stenosis D/w Dr Wright and pt in ED
--- NOTE | 2018-10-30 11:12 | PN ---
Progress Note (short form) - Note Progress Note: ID Consult dictated Lymphocytic pleocytosis Probable viral meningitis Bacterial meningitis less likely Await CSF c/s, AFB, Fungal Obtain: CSF HSV 1/2 PCR CSF viral encephalitis panel CSF TB PCR CSF VDRL CSF cryptococcal Ag CSF Lyme PCR Quantiferon Lyme serology WNV serolgy HIV test RPR Empiric coverage bacterial pathogens with ceftriaxone/ vancomycin/ ACV Isolation
[2018-10-30] MEDS ORDERED: CEFTRIAXONE 2 GM/100 ML BAG IVPB ONE (11:36)
--- NOTE | 2018-10-30 11:48 | PN ---
Progress Note, Physician Chief Complaint: 63 year old male sitting in stretcher with severe neck stiffness/pain. reports relief with morphine. Denies any chest pain, sob, n/v/d - Current Medication List Current Medications: Active Medications Guaifenesin (Robitussin -) 10 ml PO Q4H PRN PRN Reason: COUGH Last Admin: 10/30/18 06:01 Dose: 10 ml Heparin Sodium (Porcine) (Heparin -) 5,000 unit SQ TID YOLANDA Last Admin: 10/30/18 05:57 Dose: 5,000 unit Sodium Chloride (Normal Saline -) 1,000 mls @ 125 mls/hr IV ASDIR YOLANDA Last Admin: 10/30/18 01:41 Dose: 125 mls/hr Ceftriaxone Sodium 2 gm/ (Dextrose) 100 mls @ 200 mls/hr IVPB BID YOLANDA; Protocol Vancomycin HCl (Vancomycin (Pre-Docked)) 1,000 mg in 250 mls @ 166.667 mls/hr IVPB Q12H YOLANDA; Protocol Acyclovir 900 mg/ Dextrose 268 mls @ 268 mls/hr IVPB Q8H-IV YOLANDA - Objective Vital Signs: Vital Signs Temperature 98.9 F 10/30/18 11:32 Pulse Rate 75 10/30/18 11:32 Respiratory Rate 16 10/30/18 11:32 Blood Pressure 110/65 10/30/18 11:32 O2 Sat by Pulse Oximetry (%) 98 10/30/18 11:32 Constitutional: Yes: Well Nourished, No Distress, Calm Neck: Yes: Decreased ROM, Rigid Cardiovascular: Yes: WNL, Regular Rate and Rhythm. No: Murmur Respiratory: Yes: WNL, Regular, CTA Bilaterally. No: Accessory Muscle Use, SOB , Tachypnea, Wheezes Gastrointestinal: Yes: WNL, Normal Bowel Sounds, Soft. No: Distention, Tenderness Genitourinary: Yes: WNL Extremities: Yes: WNL Edema: No Neurological: Yes: WNL, Alert, Oriented Psychiatric: Yes: WNL, Alert, Oriented Labs: CBC, BMP 10/30/18 06:10 10/30/18 06:10 INR, PTT INR 1.07 (0.83-1.09) 10/29/18 22:40 Problem List - Problems (1) Viral meningitis Assessment/Plan: suspected CSF fluid- WBC 9, RBC 35, glucose 72 protein 29, lymphocytes 82 droplet precautions continue ceftriaxone/ vancomycin/ ACV coverage await all infectious work up case discussed with kristin ZUÑIGA Code(s): A87.9 - VIRAL MENINGITIS, UNSPECIFIED (2) Neck pain Assessment/Plan: as above morphine/roxicodone prn ct brain/neck- 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 mri brain/cspine pending mackenziegy following Code(s): M54.2 - CERVICALGIA (3) HTN (hypertension) Assessment/Plan: controlled hold hctx continue metoprolol, losartan, amlodipine monitor Code(s): I10 - ESSENTIAL (PRIMARY) HYPERTENSION Qualifiers: Hypertension type: essential hypertension Qualified Code(s): I10 - Essential (primary) hypertension (4) HLD (hyperlipidemia) Assessment/Plan: stable continue statin Code(s): E78.5 - HYPERLIPIDEMIA, UNSPECIFIED (5) Diabetes Assessment/Plan: controlled continue metformin diab diet Code(s): E11.9 - TYPE 2 DIABETES MELLITUS WITHOUT COMPLICATIONS Qualifiers: Diabetes mellitus type: type 2 Diabetes mellitus termination clerk insulin use: without termination clerk use Diabetes mellitus complication status: without complication Qualified Code(s): E11.9 - Type 2 diabetes mellitus without complications
[2018-10-30] MEDS: CEFTRIAXONE 2 GM in DEXTROSE 5%-WATER 100 ML IVPB SCH ×2 (11:49→21:06)
[2018-10-30] MEDS: ACYCLOVIR INJECTION 900 MG in DEXTROSE 5%-WATER - 250 ML IVPB SCH ×2 (11:55→17:53)
[2018-10-30] MEDS: VANCOMYCIN 1 GRAM (PRE-DOCKED) 1,000 MG/250 ML BAG IVPB SCH ×2 (12:04→23:35)
--- NOTE | 2018-10-30 12:12 | CONS ---
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 The patient states that he was well until October 24, when he developed an upper respiratory tract syndrome. He complained of cough, which progressively worsened. He subsequently developed neck pain, which worsened over the past 2-3 days. He presented to the emergency room on October 29, 2018, where he was evaluated. He was prescribed tramadol and ibuprofen. Despite the treatment, he developed worsening headache, occipital headache, and neck pain and stiffness. He returned to the ER where he was reevaluated. A CT scan of the head was performed and was negative for acute pathology. CT scan of the neck showed degenerative joint disease. A lumbar puncture was performed, and he was found to have 9 white cells, 16% neutrophils, 82% lymphocytes, 35 red cells, glucose of 72, and a protein of 29. The Gram stain was negative for organisms or white cells. Cultures were obtained. He was empirically treated with ceftriaxone, vancomycin, ampicillin, and acyclovir. At the present time, he is awake and alert. He complains of neck pain and headache, occipital headache. He is unable to turn his head secondary to the neck pain and stiffness. He denies any photophobia, denies any fever or chills. He continues to have a dry cough. The patient reports recent upper respiratory tract symptoms. He has had no known ill contacts. 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 He is single. He is not sexually active. He does take Aleve for musculoskeletal pain. No recent travel or significant pet exposure. He denies history of sexually transmitted diseases or HIV risk factors. No known tick bites, rash, or mosquito bites. No known rodent exposure. PAST MEDICAL HISTORY: Positive for hypertension, hyperlipidemia, [id number] diabetes mellitus. ALLERGIES: To MEPERIDINE. MEDICATIONS: Include losartan, naproxen, amlodipine, Valium, Zetia, hydrochlorothiazide, Glucophage, metoprolol. 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 No history of tobacco, alcohol, or illicit drug use. No recent travel. No ill exposures. He did receive influenza vaccine. He is single and not sexually active. SYSTEMS REVIEW: Neurologic: No loss of consciousness, seizure activity, or focal weakness. Cardiac: Positive for irregular heart rate. Respiratory: As per HPI. Gastrointestinal: Negative for vomiting or diarrhea. Genitourinary: Negative for urinary tract infection. LABORATORY DATA: White count 7.7, 69 neutrophils, 15 lymphocytes, 12 monocytes, hematocrit 40.4, platelet count 215. BUN 20, creatinine 1.2. Liver enzymes total bilirubin 0.5, alkaline phosphatase 104, AST 39, ALT 69. Spinal fluid as described. Urinalysis negative. Chest x-ray negative for acute infiltrate. PHYSICAL EXAMINATION: General: He is awake and alert. He is oriented, answers questions appropriately, in no acute distress. He is not acutely toxic-appearing. Vital signs: Temperature 97.8, blood pressure 124/73, pulse 78 and regular, respirations 16 per minute. HEENT: Sclerae anicteric. Neck: Is stiff in all directions. Heart: Heart sounds S1, S2. Lungs: Clear. Abdomen: Soft, nontender. Extremities: Negative for edema. Skin: No rashes noted. There is a healed surgical scar on the right knee. IMPRESSION: 1. Lymphocytic pleocytosis, probable viral meningitis 2. Bacterial meningitis less likely. Await spinal fluid culture, AFB and fungal culture, obtain spinal fluid for herpes simplex 1 and 2 PCR, viral encephalitis panel, TB PCR, VDRL, cryptococcal antigen, Lyme PCR, obtain QuantiFERON, Lyme serology, West Nile serology, HIV test, RPR, empiric antibiotic coverage for bacterial pathogens, pending culture with ceftriaxone, vancomycin and acyclovir, maintain isolation pending cultures. Will follow. Thank you for the kind referral. SOREN ACEVEDO M.D. JUAN [id number]
[2018-10-30] MEDS ORDERED: VANCOMYCIN 1,250 MG in DEXTROSE 5%-WATER - 250 ML IVPB ONE (13:00)
[2018-10-30] MEDS ORDERED: METOPROLOL TARTRATE 50 MG TABLET (FP) PO SCH (13:30)
[2018-10-30] MEDS ORDERED: PATIENT'S OWN MEDICATION (NON-FORMULARY) (Hydrochlorothiazide [Hydrochlorothiazide] 12.5 M PO SCH (13:30)
[2018-10-30] MEDS: MORPHINE SULFATE 2 MG/ML VIAL IVPUSH PRN ×2 (13:42→19:37)
[2018-10-30] MEDS: amLODIPine BESYLATE 5 MG TABLET (FP) PO SCH (14:39)
[2018-10-30] MEDS: metFORMIN HCL 500 MG TABLET (FP) PO SCH (14:39)
[2018-10-30] MEDS: EZETIMIBE 10 MG TABLET (FP) PO SCH (14:39)
[2018-10-30] MEDS: oxyCODONE HCL 5 MG TABLET PO PRN ×2 (15:34→21:12)
[2018-10-30] MEDS ORDERED: DEXTROSE 5%-WATER 100 ML IVPB ONE (19:31)
[2018-10-30] MEDS: ROSUVASTATIN CA 10 MG TABLET (FP) PO SCH (21:06)
[2018-10-31] MEDS ORDERED: VANCOMYCIN 1,250 MG in DEXTROSE 5%-WATER - 250 ML IVPB SCH
[2018-10-31] MEDS: ACYCLOVIR INJECTION 900 MG in DEXTROSE 5%-WATER - 250 ML IVPB SCH ×3 (01:24→18:04)
[2018-10-31] MEDS: MORPHINE SULFATE 2 MG/ML VIAL IVPUSH PRN (01:32)
[2018-10-31] MEDS: metFORMIN HCL 500 MG TABLET (FP) PO SCH (06:05)
[2018-10-31] MEDS: HEPARIN NA (PORCINE) 5,000 UNITS/ML 1ML VIAL SQ SCH ×3 (06:06→22:41)
[2018-10-31] MEDS: oxyCODONE HCL 5 MG TABLET PO PRN ×2 (06:16→18:12)
--- NOTE | 2018-10-31 07:53 | CONS ---
DATE OF CONSULTATION: 10/30/2018 CHIEF COMPLAINT: Increasing neck pain. HISTORY OF PRESENT ILLNESS: The patient is a 63-year-old right-handed male with a history of diabetes, hypertension, diverticulosis, who complains of a 2-day history of increasing neck pain and a 5-day history of upper respiratory symptoms. He has been having a cold and congestion. He had a low-grade fever, at worst. He developed left-sided neck pain a few days ago and had right-sided neck pain today. He has decreased range of motion. There is no radiation down to the arm or interscapular region. He denies bowel or bladder incontinence. There is no Lhermitte sign. He denies any upper extremity weakness, numbness or tingling. Neurosurgery opinion is requested because of the symptoms. PAST MEDICAL HISTORY: Significant for hypertension, diabetes, diverticulosis. MEDICATIONS: Include losartan, naproxen, Norvasc, Valium, ezetimibe, hydrochlorothiazide, metformin, metoprolol, Crestor. ALLERGIES: DEMEROL. SOCIAL HISTORY: He does not smoke or drink. He quit smoking 11 years ago. 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 REVIEW OF SYSTEMS: Otherwise negative for other major constitutional, head and neck, cardiovascular, pulmonary, gastrointestinal, genitourinary, endocrinological, neurological or psychological problems. PHYSICAL EXAMINATION: Vitals: Temperature is 97.8, Tmax 98.8, blood pressure 124/73, pulse rate 78, O2 saturation 95% on room air. HEENT: Examination shows him to be normocephalic, atraumatic. Neck: Decreased range of motion with paraspinal muscle spasm. Flexion is 30 degrees and extension 0 degrees. Lateral rotation is 20 degrees in each direction. Heart: Coronary examination demonstrated a regular rhythm. Respiratory: Lungs are clear bilaterally except for occasional left upper lung field wheeze. Abdomen: Benign. Extremities: Examination showed no signs of DVT. Neurologic: He is awake, alert and oriented x3. Cranial nerve examination is intact II through XII. Motor examination shows 5/5 strength without a drift. Sensory examination is intact to light touch. Deep tendon reflexes are 1+ to 2+ throughout. There is no pathological long tract sign. Gait was not tested for safety reasons. Cerebellar examination demonstrated intact [id number] examination. DIAGNOSTIC STUDIES: Laboratory examination shows white blood cell count 7.7; previously it was 9.2. Hemoglobin is 13.3 and platelet count 205,000. INR is 1.07, PT 25.9. Serum sodium is 139, potassium 3.9, BUN 20, creatinine 1.2. CSF shows 9 WBC and 35 RBC; there are 16% neutrophils, 82% lymphocytes, glucose 72 and protein 29. CSF Gram stain shows no polymorphonuclear WBC and no RBC. There are no organisms. Culture is pending. CT scan of the head from yesterday demonstrated no acute intracranial pathology. There is no bleed or hydrocephalus. There is no fracture. CT scan of the neck demonstrates moderate C5-C6 degenerative disk disease with degenerative disk space narrowing. There is left greater than right C5-C6 foraminal stenosis. IMPRESSION: 1. Possible viral meningitis. 2. C5-C6 degenerative disk disease. RECOMMENDATIONS: The patient presents with a 5-day history of upper respiratory symptoms and a 2-day history of increasing neck pain. His lumbar puncture did not demonstrate a pattern consistent with bacterial meningitis. He might still have viral meningitis because of his recent viral syndrome. MRI of the brain is recommended, with and without gadolinium, because of his recent low-grade fever, as well as significant nuchal rigidity to r/o basal enhancement. MRI of the cervical spine is also ordered to rule out C5-C6 disk herniation and spinal canal/foraminal impingement. The above was discussed with the patient and the infectious disease specialist, Dr. Wright, in the emergency room. The patient will be covered with IV antibiotics until the CSF culture comes back. All questions were answered at bedside in the emergency room. At this point, no neurosurgical intervention is recommended. MAUREEN MCFARLAND M.D. JENNY/[id number] MTDD
[2018-10-31] MEDS ORDERED: DEXTROSE 5%-WATER 100 ML IVPB ONE ×2 (08:05→21:15)
[2018-10-31 08:25] LABS: HEMATOCRIT 35.1 % (35.4-49); HEMOGLOBIN 11.8 GM/dL (11.7-16.9); MCH 30.2 pg (25.7-33.7); MCHC 33.7 g/dl (32.0-35.9); MEAN CELL VOLUME 89.5 fl (80-96); MEAN PLT VOLUME 7.8 fl (7.5-11.1); PLATELET COUNT 213 K/MM3 (134-434); RBC 3.93 M/mm3 (4.00-5.60); RDW 12.8 % (11.9-15.9); WHITE BLOOD COUNT 6.5 K/mm3 (4.0-10.0)
[2018-10-31 08:26] LABS: BASO % 0.2 % (0-2.0); EOS % 2.9 % (0-4.5); LYMPH % 16.3 % (8-40); NEUT % 66.6 % (42.8-82.8)
--- NOTE | 2018-10-31 08:34 | PN ---
Progress Note (short form) - Note Progress Note: NEUROSURGERY On 8W Neck pain still PE: Tmax 99.8, VSS HEENT- NC/AT; Neck- supple; Cor- RRR; lungs- CTA B; Abd- benign; Ext- no sign of DVT A/A/Ox3 CN- intact; Motor- 5/5 without drift; Sensation- intact LT; DTR- 2+ CSF WBC 9, RBC 35, glucose 72 protein 29, lymphocytes 82; culture pending Head CT- no bleed or fx. No HCP C spine CT- preservation of lordosis; C5-6 DDD with foramenal stenosis L > R Brain MRI 2016- mild atrophy, mild periventricular small vessel disease Possible viral meningitis C5-6 DDD Brain MRI with clint to r/o basal enhancement; C spine MRI non-contrast to assess C5-6 DDD/stenosis Decadron x1 D/w Dr Wright and pt in ED re: x
[2018-10-31 08:41] LABS: ANION GAP 8 MMOL/L (8-16); BLOOD UREA NITROGEN 10 mg/dL (7-18); CHLORIDE 100 mmol/L (98-107); CO2 28 mmol/L (21-32); GLUCOSE,RANDOM 105 mg/dL (74-106); POTASSIUM 3.7 mmol/L (3.5-5.1); SODIUM 136 mmol/L (136-145)
[2018-10-31] MEDS ORDERED: DEXAMETHASONE SOD PHOSPHATE 4 MG/1 ML VIAL IVPUSH ONE (08:57)
[2018-10-31] MEDS: CEFTRIAXONE 2 GM in DEXTROSE 5%-WATER 100 ML IVPB SCH ×2 (09:06→22:41)
[2018-10-31] MEDS: EZETIMIBE 10 MG TABLET (FP) PO SCH (09:07)
[2018-10-31] MEDS: LOSARTAN POTASSIUM 50 MG TABLET (FP) PO SCH (09:07)
[2018-10-31] MEDS: amLODIPine BESYLATE 5 MG TABLET (FP) PO SCH (09:07)
[2018-10-31] MEDS ORDERED: PT OWN MED DRAWER 7, Y5N ONE (09:14)
--- NOTE | 2018-10-31 09:57 | PN ---
Progress Note (short form) - Note Progress Note: ROUTING CLERK Ruslan/Hospitalist to document today. Final bacterial C/S should be ready by today. Still painful stiff neck but a little better. Await MRI If symptoms improved may D/C weekend.
[2018-10-31] MEDS ORDERED: oxyCODONE HCL 5 MG TABLET PO PRN (10:26)
--- NOTE | 2018-10-31 10:26 | PN ---
Progress Note, Physician Chief Complaint: 63 year old male sitting in bed in no acute distress. neck stiffness/pain/rom improving. reports relief with roxicodone. Denies any chest pain, sob, n/v/d - Current Medication List Current Medications: Active Medications Amlodipine Besylate (Norvasc -) 5 mg PO DAILY [facility] Last Admin: 10/31/18 09:07 Dose: 5 mg Ezetimibe (Zetia -) 10 mg PO DAILY [facility] Last Admin: 10/31/18 09:07 Dose: 10 mg Guaifenesin (Robitussin -) 10 ml PO Q4H PRN PRN Reason: COUGH Last Admin: 10/30/18 06:01 Dose: 10 ml Heparin Sodium (Porcine) (Heparin -) 5,000 unit SQ TID [facility] Last Admin: 10/31/18 06:06 Dose: 5,000 unit Ceftriaxone Sodium 2 gm/ (Dextrose) 100 mls @ 200 mls/hr IVPB BID [facility]; Protocol Last Admin: 10/31/18 09:06 Dose: 200 mls/hr Vancomycin HCl (Vancomycin (Pre-Docked)) 1,000 mg in 250 mls @ 166.667 mls/hr IVPB Q12H [facility]; Protocol Last Admin: 10/30/18 23:35 Dose: 166.667 mls/hr Acyclovir 900 mg/ Dextrose 268 mls @ 268 mls/hr IVPB Q8H-IV [facility] Last Admin: 10/31/18 01:24 Dose: 268 mls/hr Losartan Potassium (Cozaar -) 100 mg PO DAILY [facility] Last Admin: 10/31/18 09:07 Dose: 100 mg Metformin HCl (Glucophage -) 500 mg PO DAILY@0700 [facility] Last Admin: 10/31/18 06:05 Dose: 500 mg Metoprolol Succinate (Toprol Xl -) 50 mg PO DAILY [facility] Last Admin: 10/31/18 09:07 Dose: 50 mg Morphine Sulfate (Morphine Sulfate) 2 mg IVPUSH Q4H PRN PRN Reason: PAIN LEVEL 6-10 Last Admin: 10/31/18 01:32 Dose: 2 mg Oxycodone HCl (Roxicodone -) 5 mg PO Q4H PRN PRN Reason: PAIN LEVEL 4 - 6 Last Admin: 10/31/18 06:16 Dose: 5 mg Rosuvastatin Calcium (Crestor -) 10 mg PO HS [facility] Last Admin: 10/30/18 21:06 Dose: 10 mg - Objective Vital Signs: Vital Signs Temperature 99 F 10/31/18 06:51 Pulse Rate 80 10/31/18 06:51 Respiratory Rate 18 10/31/18 06:51 Blood Pressure 109/66 10/31/18 06:51 O2 Sat by Pulse Oximetry (%) 95 10/31/18 06:09 Constitutional: Yes: Well Nourished, No Distress, Calm Neck: Yes: Decreased ROM Cardiovascular: Yes: WNL, Regular Rate and Rhythm. No: Murmur Respiratory: Yes: WNL, Regular, CTA Bilaterally. No: Accessory Muscle Use, SOB , SOB on Exertion, Tachypnea, Wheezes Gastrointestinal: Yes: WNL, Normal Bowel Sounds, Soft. No: Distention, Tenderness Genitourinary: Yes: WNL Extremities: Yes: WNL Edema: No Neurological: Yes: WNL, Alert, Oriented Psychiatric: Yes: WNL, Alert, Oriented Labs: CBC, BMP 10/31/18 06:15 10/31/18 06:15 INR, PTT INR 1.07 (0.83-1.09) 10/29/18 22:40 Problem List - Problems (1) Viral meningitis Code(s): A87.9 - VIRAL MENINGITIS, UNSPECIFIED (2) Neck pain Code(s): M54.2 - CERVICALGIA (3) HTN (hypertension) Code(s): I10 - ESSENTIAL (PRIMARY) HYPERTENSION Qualifiers: Hypertension type: essential hypertension Qualified Code(s): I10 - Essential (primary) hypertension (4) HLD (hyperlipidemia) Code(s): E78.5 - HYPERLIPIDEMIA, UNSPECIFIED (5) Diabetes Code(s): E11.9 - TYPE 2 DIABETES MELLITUS WITHOUT COMPLICATIONS Qualifiers: Diabetes mellitus type: type 2 Diabetes mellitus computer terminal operator insulin use: without computer terminal operator use Diabetes mellitus complication status: without complication Qualified Code(s): E11.9 - Type 2 diabetes mellitus without complications Assessment/Plan (1) Viral meningitis Assessment/Plan: suspected CSF fluid- WBC 9, RBC 35, glucose 72 protein 29, lymphocytes 82 droplet precautions continue ceftriaxone/ ACV coverage await for final C&S ID following Code(s): A87.9 - VIRAL MENINGITIS, UNSPECIFIED (2) Neck pain Assessment/Plan: as above morphine/roxicodone prn ct brain/neck- 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 mri brain/cspine pending nsgy following Code(s): M54.2 - CERVICALGIA (3) HTN (hypertension) Assessment/Plan: controlled hold hctz continue metoprolol, losartan, amlodipine monitor Code(s): I10 - ESSENTIAL (PRIMARY) HYPERTENSION Qualifiers: Hypertension type: essential hypertension Qualified Code(s): I10 - Essential (primary) hypertension (4) HLD (hyperlipidemia) Assessment/Plan: stable continue statin Code(s): E78.5 - HYPERLIPIDEMIA, UNSPECIFIED (5) Diabetes Assessment/Plan: controlled continue metformin diab diet Code(s): E11.9 - TYPE 2 DIABETES MELLITUS WITHOUT COMPLICATIONS Qualifiers: Diabetes mellitus type: type 2 Diabetes mellitus computer terminal operator insulin use: without computer terminal operator use Diabetes mellitus complication status: without complication Qualified Code(s): E11.9 - Type 2 diabetes mellitus without complications Dispo: home when ID cleared
--- NOTE | 2018-10-31 10:46 | PN ---
Progress Note, Physician History of Present Illness: Awake, alert Reports less neck pain/ stiffness Low grade temp CSF c/s prelim negative - Current Medication List Current Medications: Active Medications Amlodipine Besylate (Norvasc -) 5 mg PO DAILY [facility] Last Admin: 10/31/18 09:07 Dose: 5 mg Ezetimibe (Zetia -) 10 mg PO DAILY [facility] Last Admin: 10/31/18 09:07 Dose: 10 mg Guaifenesin (Robitussin -) 10 ml PO Q4H PRN PRN Reason: COUGH Last Admin: 10/30/18 06:01 Dose: 10 ml Heparin Sodium (Porcine) (Heparin -) 5,000 unit SQ TID [facility] Last Admin: 10/31/18 06:06 Dose: 5,000 unit Ceftriaxone Sodium 2 gm/ (Dextrose) 100 mls @ 200 mls/hr IVPB BID [facility]; Protocol Last Admin: 10/31/18 09:06 Dose: 200 mls/hr Vancomycin HCl (Vancomycin (Pre-Docked)) 1,000 mg in 250 mls @ 166.667 mls/hr IVPB Q12H [facility]; Protocol Last Admin: 10/30/18 23:35 Dose: 166.667 mls/hr Acyclovir 900 mg/ Dextrose 268 mls @ 268 mls/hr IVPB Q8H-IV [facility] Last Admin: 10/31/18 01:24 Dose: 268 mls/hr Losartan Potassium (Cozaar -) 100 mg PO DAILY [facility] Last Admin: 10/31/18 09:07 Dose: 100 mg Metformin HCl (Glucophage -) 500 mg PO DAILY@0700 [facility] Last Admin: 10/31/18 06:05 Dose: 500 mg Metoprolol Succinate (Toprol Xl -) 50 mg PO DAILY [facility] Last Admin: 10/31/18 09:07 Dose: 50 mg Oxycodone HCl (Roxicodone -) 5 mg PO Q4H PRN PRN Reason: PAIN LEVEL 4 - 6 Last Admin: 10/31/18 06:16 Dose: 5 mg Oxycodone HCl (Roxicodone -) 10 mg PO Q6H PRN PRN Reason: PAIN LEVEL 7-10 Rosuvastatin Calcium (Crestor -) 10 mg PO HS [facility] Last Admin: 10/30/18 21:06 Dose: 10 mg - Objective Vital Signs: Vital Signs Temperature 99 F 10/31/18 06:51 Pulse Rate 80 10/31/18 06:51 Respiratory Rate 18 10/31/18 06:51 Blood Pressure 109/66 10/31/18 06:51 O2 Sat by Pulse Oximetry (%) 95 10/31/18 06:09 Constitutional: Yes: No Distress Eyes: Yes: Conjunctiva Clear Neck: Yes: Other (+ neck stiffness/ tenderness) Cardiovascular: Yes: Regular Rate and Rhythm, S1, S2 Respiratory: Yes: CTA Bilaterally Gastrointestinal: Yes: Normal Bowel Sounds, Soft. No: Tenderness Edema: No Labs: CBC, BMP 10/31/18 06:15 10/31/18 06:15 INR, PTT INR 1.07 (0.83-1.09) 10/29/18 22:40 Assessment/Plan Aseptic meningitis, likely viral Await CSF c/s Continue ceftriaxone/ ACV for now D/C vancomycin If CSF c/s negative will D/C antibotics next 24h
[2018-10-31] MEDS: ROSUVASTATIN CA 10 MG TABLET (FP) PO SCH (22:41)
[2018-11-01] MEDS ORDERED: PT OWN MED DRAWER 7, Y5N ONE ×2 (01:32→18:14)
[2018-11-01] MEDS: ACYCLOVIR INJECTION 900 MG in DEXTROSE 5%-WATER - 250 ML IVPB SCH ×3 (01:40→18:17)
[2018-11-01] MEDS: metFORMIN HCL 500 MG TABLET (FP) PO SCH (06:22)
[2018-11-01] MEDS: HEPARIN NA (PORCINE) 5,000 UNITS/ML 1ML VIAL SQ SCH ×3 (06:22→22:24)
[2018-11-01 06:59] LABS: BASO % 0.4 % (0-2.0); EOS % 0.1 % (0-4.5); HEMATOCRIT 37.5 % (35.4-49); HEMOGLOBIN 12.5 GM/dL (11.7-16.9); LYMPH % 10.6 % (8-40); MCH 29.9 pg (25.7-33.7); MCHC 33.3 g/dl (32.0-35.9); MEAN CELL VOLUME 89.8 fl (80-96); MEAN PLT VOLUME 8.1 fl (7.5-11.1); MONO % 10.2 % (3.8-10.2); NEUT % 78.7 % (42.8-82.8); PLATELET COUNT 246 K/MM3 (134-434); RBC 4.17 M/mm3 (4.00-5.60); RDW 12.9 % (11.9-15.9); WHITE BLOOD COUNT 9.5 K/mm3 (4.0-10.0)
[2018-11-01 07:41] LABS: ANION GAP 10 MMOL/L (8-16); BLOOD UREA NITROGEN 13 mg/dL (7-18); CALCIUM 8.4 mg/dL (8.5-10.1); CHLORIDE 102 mmol/L (98-107); CO2 27 mmol/L (21-32); GLUCOSE,RANDOM 104 mg/dL (74-106); POTASSIUM 4.1 mmol/L (3.5-5.1); SODIUM 139 mmol/L (136-145)
--- NOTE | 2018-11-01 08:18 | PN ---
Progress Note, Physician Chief Complaint: Still c/o neck pain - Current Medication List Current Medications: Active Medications Amlodipine Besylate (Norvasc -) 5 mg PO DAILY [facility] Last Admin: 10/31/18 09:07 Dose: 5 mg Ezetimibe (Zetia -) 10 mg PO DAILY [facility] Last Admin: 10/31/18 09:07 Dose: 10 mg Guaifenesin (Robitussin -) 10 ml PO Q4H PRN PRN Reason: COUGH Last Admin: 10/30/18 06:01 Dose: 10 ml Heparin Sodium (Porcine) (Heparin -) 5,000 unit SQ TID [facility] Last Admin: 11/01/18 06:22 Dose: 5,000 unit Ceftriaxone Sodium 2 gm/ (Dextrose) 100 mls @ 200 mls/hr IVPB BID [facility]; Protocol Last Admin: 10/31/18 22:41 Dose: 200 mls/hr Acyclovir 900 mg/ Dextrose 268 mls @ 268 mls/hr IVPB Q8H-IV [facility] Last Admin: 11/01/18 01:40 Dose: 268 mls/hr Losartan Potassium (Cozaar -) 100 mg PO DAILY [facility] Last Admin: 10/31/18 09:07 Dose: 100 mg Metformin HCl (Glucophage -) 500 mg PO DAILY@0700 [facility] Last Admin: 11/01/18 06:22 Dose: 500 mg Metoprolol Succinate (Toprol Xl -) 50 mg PO DAILY [facility] Last Admin: 10/31/18 09:07 Dose: 50 mg Oxycodone HCl (Roxicodone -) 5 mg PO Q4H PRN PRN Reason: PAIN LEVEL 4 - 6 Last Admin: 10/31/18 18:12 Dose: 5 mg Oxycodone HCl (Roxicodone -) 10 mg PO Q6H PRN PRN Reason: PAIN LEVEL 7-10 Rosuvastatin Calcium (Crestor -) 10 mg PO HS [facility] Last Admin: 10/31/18 22:41 Dose: 10 mg - Objective Vital Signs: Vital Signs Temperature 98.0 F 11/01/18 07:00 Pulse Rate 67 11/01/18 07:00 Respiratory Rate 20 11/01/18 07:00 Blood Pressure 122/72 11/01/18 07:00 O2 Sat by Pulse Oximetry (%) 96 10/31/18 23:00 Constitutional: Yes: Well Nourished, No Distress, Calm Neck: Yes: Decreased ROM Cardiovascular: Yes: WNL, Regular Rate and Rhythm. No: Murmur Respiratory: Yes: WNL, Regular, CTA Bilaterally. No: Accessory Muscle Use, SOB , SOB on Exertion, Tachypnea, Wheezes Gastrointestinal: Yes: WNL, Normal Bowel Sounds, Soft. No: Distention, Tenderness Genitourinary: Yes: WNL Extremities: Yes: WNL Edema: No Neurological: Yes: WNL, Alert, Oriented Psychiatric: Yes: WNL, Alert, Oriented Labs: CBC, BMP 11/01/18 06:30 11/01/18 06:30 INR, PTT INR 1.07 (0.83-1.09) 10/29/18 22:40 Microbiology 10/29/18 23:00 Gram Stain - Final Cerebral Spinal Fluid - Lumbar Puncture CSF Culture - Final - ....Imaging MRI: Report Reviewed (Brain no acute changes) Problem List - Problems (1) Viral meningitis Assessment/Plan: present with possible meningitis will discuss with ID to if abx can be stopped as final CSF bacterial culture is -ve , Code(s): A87.9 - VIRAL MENINGITIS, UNSPECIFIED (2) HTN (hypertension) Assessment/Plan: Well controlled cont current meds amlodipine Code(s): I10 - ESSENTIAL (PRIMARY) HYPERTENSION Qualifiers: Hypertension type: essential hypertension Qualified Code(s): I10 - Essential (primary) hypertension (3) Diabetes Assessment/Plan: on Metformin F/U acciu checks Code(s): E11.9 - TYPE 2 DIABETES MELLITUS WITHOUT COMPLICATIONS Qualifiers: Diabetes mellitus type: type 2 Diabetes mellitus terminal clerk insulin use: without skilled nursing use Diabetes mellitus complication status: without complication Qualified Code(s): E11.9 - Type 2 diabetes mellitus without complications (4) HLD (hyperlipidemia) Assessment/Plan: Cont Zetia Code(s): E78.5 - HYPERLIPIDEMIA, UNSPECIFIED (5) Neck pain Assessment/Plan: F/U MRI C spines Code(s): M54.2 - CERVICALGIA
[2018-11-01] MEDS ORDERED: DEXTROSE 5%-WATER 100 ML IVPB ONE (09:18)
--- NOTE | 2018-11-01 09:21 | PN ---
Progress Note (short form) - Note Progress Note: NEUROSURGERY On 8W Neck pain still PE: Tmax 98.3, VSS HEENT- NC/AT; Neck- supple; Cor- RRR; lungs- CTA B; Abd- benign; Ext- no sign of DVT A/A/Ox3 CN- intact; Motor- 5/5 without drift; Sensation- intact LT; DTR- 2+ CSF WBC 9, RBC 35, glucose 72 protein 29, lymphocytes 82; bacterial culture negative Head CT- no bleed or fx. 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
[2018-11-01] MEDS: CEFTRIAXONE 2 GM in DEXTROSE 5%-WATER 100 ML IVPB SCH (09:24)
[2018-11-01] MEDS: EZETIMIBE 10 MG TABLET (FP) PO SCH (09:24)
[2018-11-01] MEDS: LOSARTAN POTASSIUM 50 MG TABLET (FP) PO SCH (09:25)
[2018-11-01] MEDS: amLODIPine BESYLATE 5 MG TABLET (FP) PO SCH (09:25)
[2018-11-01] MEDS ORDERED: DEXAMETHASONE SOD PHOSPHATE 4 MG/1 ML VIAL IVPUSH ONE (09:29)
[2018-11-01] MEDS ORDERED: diazePAM 5 MG TABLET PO ONE (09:29)
--- NOTE | 2018-11-01 15:54 | PN ---
Progress Note, Physician History of Present Illness: Awake, alert Reports less neck pain/ stiffness Afebrile CSF negative - Current Medication List Current Medications: Active Medications Amlodipine Besylate (Norvasc -) 5 mg PO DAILY [facility] Last Admin: 11/01/18 09:25 Dose: 5 mg Ezetimibe (Zetia -) 10 mg PO DAILY [facility] Last Admin: 11/01/18 09:24 Dose: 10 mg Guaifenesin (Robitussin -) 10 ml PO Q4H PRN PRN Reason: COUGH Last Admin: 10/30/18 06:01 Dose: 10 ml Heparin Sodium (Porcine) (Heparin -) 5,000 unit SQ TID [facility] Last Admin: 11/01/18 06:22 Dose: 5,000 unit Acyclovir 900 mg/ Dextrose 268 mls @ 268 mls/hr IVPB Q8H-IV [facility] Last Admin: 11/01/18 10:48 Dose: 268 mls/hr Losartan Potassium (Cozaar -) 100 mg PO DAILY [facility] Last Admin: 11/01/18 09:25 Dose: 100 mg Metformin HCl (Glucophage -) 500 mg PO DAILY@0700 [facility] Last Admin: 11/01/18 06:22 Dose: 500 mg Metoprolol Succinate (Toprol Xl -) 50 mg PO DAILY [facility] Last Admin: 11/01/18 09:25 Dose: 50 mg Oxycodone HCl (Roxicodone -) 5 mg PO Q4H PRN PRN Reason: PAIN LEVEL 4 - 6 Last Admin: 10/31/18 18:12 Dose: 5 mg Oxycodone HCl (Roxicodone -) 10 mg PO Q6H PRN PRN Reason: PAIN LEVEL 7-10 Rosuvastatin Calcium (Crestor -) 10 mg PO HS [facility] Last Admin: 10/31/18 22:41 Dose: 10 mg - Objective Vital Signs: Vital Signs Temperature 98.2 F 11/01/18 15:24 Pulse Rate 76 11/01/18 15:24 Respiratory Rate 18 11/01/18 15:24 Blood Pressure 110/78 11/01/18 15:24 O2 Sat by Pulse Oximetry (%) 96 10/31/18 23:00 Eyes: Yes: Conjunctiva Clear Neck: Yes: Other (less stiffness/ tenderness Increased ROM) Cardiovascular: Yes: Regular Rate and Rhythm, S1, S2 Respiratory: Yes: CTA Bilaterally Gastrointestinal: Yes: Normal Bowel Sounds, Soft. No: Tenderness Edema: No Integumentary: No: Rash Labs: CBC, BMP 11/01/18 06:30 11/01/18 06:30 INR, PTT INR 1.07 (0.83-1.09) 10/29/18 22:40 Assessment/Plan Aseptic meningitis, likely viral CSF c/s negative Discontinue ceftriaxone Await CSF HSV PCR
[2018-11-01] MEDS: valACYclovir HCL 500 MG TABLET (FP) PO SCH (22:24)
[2018-11-01] MEDS: ROSUVASTATIN CA 10 MG TABLET (FP) PO SCH (22:24)
[2018-11-02] MEDS: valACYclovir HCL 500 MG TABLET (FP) PO SCH (06:36)
[2018-11-02] MEDS: metFORMIN HCL 500 MG TABLET (FP) PO SCH (06:36)
[2018-11-02] MEDS: HEPARIN NA (PORCINE) 5,000 UNITS/ML 1ML VIAL SQ SCH (06:36)
[2018-11-02 07:31] LABS: BASO % 0.2 % (0-2.0); EOS % 0.1 % (0-4.5); HEMATOCRIT 37.1 % (35.4-49); HEMOGLOBIN 12.4 GM/dL (11.7-16.9); LYMPH % 10.2 % (8-40); MCH 30.6 pg (25.7-33.7); MCHC 33.6 g/dl (32.0-35.9); MEAN CELL VOLUME 91.2 fl (80-96); MONO % 7.9 % (3.8-10.2); NEUT % 81.6 % (42.8-82.8); PLATELET COUNT 266 K/MM3 (134-434); RBC 4.07 M/mm3 (4.00-5.60); RDW 12.6 % (11.9-15.9); WHITE BLOOD COUNT 9.7 K/mm3 (4.0-10.0)
[2018-11-02 07:58] VITALS: TEMP 98
[2018-11-02 08:17] LABS: ANION GAP 10 MMOL/L (8-16); BLOOD UREA NITROGEN 21 mg/dL (7-18); CALCIUM 8.4 mg/dL (8.5-10.1); CHLORIDE 104 mmol/L (98-107); CO2 26 mmol/L (21-32); CREATININE 1.1 mg/dL (0.55-1.3); GLUCOSE,RANDOM 102 mg/dL (74-106); SODIUM 140 mmol/L (136-145)
[2018-11-02] MEDS: amLODIPine BESYLATE 5 MG TABLET (FP) PO SCH (09:45)
[2018-11-02] MEDS: EZETIMIBE 10 MG TABLET (FP) PO SCH (09:45)
[2018-11-02] MEDS: LOSARTAN POTASSIUM 50 MG TABLET (FP) PO SCH (09:45)
[2018-11-02 12:53] VITALS: BP 118/76; PULSE 70
--- NOTE | 2018-11-02 13:09 | PN ---
Progress Note, Physician History of Present Illness: Awake, alert No c/o neck pain/ stiffness Afebrile CSF negative - Objective Vital Signs: Vital Signs Temperature 98.0 F 11/02/18 10:00 Pulse Rate 70 11/02/18 10:00 Respiratory Rate 18 11/02/18 10:00 Blood Pressure 118/76 11/02/18 10:00 O2 Sat by Pulse Oximetry (%) 94 L 11/02/18 09:00 Constitutional: Yes: No Distress Eyes: Yes: Conjunctiva Clear Cardiovascular: Yes: Regular Rate and Rhythm, S1, S2 Respiratory: Yes: CTA Bilaterally Gastrointestinal: Yes: Normal Bowel Sounds, Soft Edema: No Labs: CBC, BMP 11/02/18 07:00 11/02/18 07:00 INR, PTT INR 1.07 (0.83-1.09) 10/29/18 22:40 Assessment/Plan Aseptic meningitis, likely viral CSF c/s negative Substitute ACV po additional 7d
--- NOTE | 2018-11-02 17:08 | DS ---
Physical Examination Vital Signs: Vital Signs Temperature 98.0 F 11/02/18 10:00 Pulse Rate 70 11/02/18 10:00 Respiratory Rate 18 11/02/18 10:00 Blood Pressure 118/76 11/02/18 10:00 O2 Sat by Pulse Oximetry (%) 94 L 11/02/18 09:00 Constitutional: Yes: Well Nourished, No Distress, Calm Eyes: Yes: WNL, Conjunctiva Clear, EOM Intact HENT: Yes: Atraumatic, Normocephalic Neck: Yes: Trachea Midline, Decreased ROM, Other (mild pain in pasive movement) Respiratory: Yes: Regular, CTA Bilaterally Gastrointestinal: Yes: Normal Bowel Sounds, Soft Musculoskeletal: Yes: Back Pain, Joint Stiffness Extremities: No: Calf Tenderness Edema: No Peripheral Pulses: Left Doralis Pedis: 2+, Right Dorsalis Pedis: 2+ Neurological: Yes: Oriented, Cran Nerves II-XII Intact. No: Aphasia, Asterixis , Ataxia ...Motor Strength: LUE, LLE, RUE, RLE Labs: CBC, BMP 11/02/18 07:00 11/02/18 07:00 Discharge Summary Reason For Visit: NECK PAIN Procedures: Principal: LP for CSF analysis. MRI Brain. MRI C spine Hospital Course: Patient present with fever and intractable neck pain , didnt respond to out patient treatment , underwent LP that shows few WBC with predominant Lymphocytes treated for meningitis emaprically, abx stopped once CSF culture was reported normal, patient improved s far CSF culture are -ve evaluated by ID and Neuro surgery and atient is discharged on PO Valcyclovir to F/u with ID, PCP and neurosurgery as out patient, MRI Neck and Batin doesnt shoow any acute pathology. Time Spent 34 minutes Condition: Improved - Instructions Referrals: Lobito Wright MD [Staff Physician] - 1 Week Mark Paiz MD [Primary Care Provider] - 1 Week Mark Amanda MD [Staff Physician] - 1 Month Disposition: HOME - Home Medications Comprehensive Discharge Medication List: Ambulatory Orders Losartan Potassium [Cozaar] 100 mg PO DAILY 05/15/13 Naproxen [Naprosyn -] 500 mg PO BID #20 tablet 06/21/16 Amlodipine Besylate 5 mg PO DAILY 10/29/18 Diazepam [Valium] 5 mg PO Q8H #12 tablet MDD 3 10/29/18 Ezetimibe 10 mg PO DAILY 10/29/18 Hydrochlorothiazide 12.5 mg PO DAILY 10/29/18 Metformin HCl [Glucophage] 500 mg PO DAILY 10/29/18 Metoprolol Tartrate 50 mg PO DAILY 10/29/18 Rosuvastatin Calcium 10 mg PO DAILY 10/29/18 Guaifenesin [Robitussin -] 10 ml PO Q4H PRN #1 cup 11/02/18 Valacyclovir HCl [Valtrex -] 1,000 mg PO TID 7 Days #21 tablet 11/02/18
[2018-11-03 15:21] LABS: WEST NILE VIRUS AB SERUM,IGM Negative (Negative)
[2018-11-10 10:08] LABS: MUMPS AB IGG CSF < 5.0 AU/mL (<=10.9)
== END 2018-11-02 12:55 | disposition home or self-care (01) | DRG 75 ==
LOC: JER 17:17 → JERBED 10-30 00:43 → J8W 10-30 13:06 → OBSVTOIN 10-31 12:46
PROVIDERS: ADMIT Internal Medicine; ATTEND Internal Medicine
PROC: 009U3ZZ Drainage of Spinal Canal, Percutaneous Approach (ICD-10-PCS; principal; 2018-10-29)
DX: A87.9 Viral meningitis, unspecified (principal); N17.9 Acute kidney failure, unspecified; I10 Essential (primary) hypertension; E11.9 Type 2 diabetes mellitus without complications; E78.5 Hyperlipidemia, unspecified; I95.9 Hypotension, unspecified; M50.322 Other cervical disc degeneration at C5-C6 level
CPT/HCPCS: 36415; 70450-TC; 70490-TC; 70553-TC; 72141-TC; 80048; 80053; 81003; 82550; 82553; 82945; 82962; 83605; 83735; 84100; 84157; 85025; 85610; 85730; 86480; 86593; 86618; 86694; 86735; 86765; 86787; 86788; 86789; 87070; 87102; 87205; 87210; 87389; 87529; 87556; 87899; 99285-25; G0378; J0131; J1644; J7030

== ENCOUNTER 2019-10-20 10:40 | Emergency (ER) | payer OTHER, MEDICARE ==
[2019-10-20 10:47] VITALS: BP 155/91; PULSE 60; TEMP 97.4; BMI 28.6
--- NOTE | 2019-10-20 11:20 | PDOC ---
History of Present Illness - General Chief Complaint: Pain, Acute Stated Complaint: R/O BLOOD CLOT RT LEG Time Seen by Provider: 10/20/19 10:59 History Source: Patient - History of Present Illness Occurred: reports: last week Severity: Yes: moderate Past History - Past Medical History Allergies/Adverse Reactions: Allergies Allergy/AdvReac Type Severity Reaction Status Date / Time meperidine HCl [From Demerol] Allergy Severe SYNCOPE Verified 10/20/19 10:47 Home Medications: Ambulatory Orders Losartan Potassium [Cozaar] 100 mg PO DAILY 05/15/13 Naproxen [Naprosyn -] 500 mg PO BID #20 tablet 06/21/16 Amlodipine Besylate 5 mg PO DAILY 10/29/18 Diazepam [Valium] 5 mg PO Q8H #12 tablet MDD 3 10/29/18 Ezetimibe 10 mg PO DAILY 10/29/18 Hydrochlorothiazide 12.5 mg PO DAILY 10/29/18 Metformin HCl [Glucophage] 500 mg PO DAILY 10/29/18 Metoprolol Tartrate 50 mg PO DAILY 10/29/18 Rosuvastatin Calcium 10 mg PO DAILY 10/29/18 Guaifenesin [Robitussin -] 10 ml PO Q4H PRN #1 cup 11/02/18 Valacyclovir HCl [Valtrex -] 1,000 mg PO TID 7 Days #21 tablet 11/02/18 Apixaban [Eliquis - Starter Pack (For VTE)] 5 mg PO UTDICT 30 Days #30 tab 10/20 Cardiac Disorders: Yes (Arrythmia) COPD: No Diabetes: Yes HTN: Yes Hypercholesterolemia: Yes - Surgical History Appendectomy: Yes Orthopedic Surgery: Yes (2 screws R knee, L hand surgery) - Immunization History Immunization Up to Date: Yes - Psycho Social/Smoking Cessation Hx Smoking Status: No Smoking History: Never smoked Have you smoked in the past 12 months: No Number of Cigarettes Smoked Daily: 0 Hx Alcohol Use: Yes Drug/Substance Use Hx: No Substance Use Type: None Hx Substance Use Treatment: No Review of Systems - Review of Systems Constitutional: No: Chills, Fever Respiratory: No: Cough, Shortness of Breath, Wheezing, Hemoptysis Cardiac (ROS): No: Chest Pain, Palpitations *Physical Exam - Vital Signs Last Vital Signs Temp Pulse Resp BP Pulse Ox 97.4 F L 60 16 155/91 97 10/20/19 10:45 10/20/19 10:45 10/20/19 10:45 10/20/19 10:45 10/20/19 10:45 - Physical Exam General Appearance: Yes: Appropriately Dressed. No: Apparent Distress HEENT: positive: Normal Voice Neck: positive: Supple Respiratory/Chest: positive: Lungs Clear, Normal Breath Sounds. negative: Respiratory Distress Cardiovascular: positive: Regular Rate, S1, S2 Integumentary: positive: Dry, Warm Neurologic: positive: Fully Oriented, Alert, Normal Mood/Affect Medical Decision Making - Medical Decision Making 10/20/19 11:36 64-year-old male, h/o HTN, HLD, DM, here for management of acute DVT to right lower leg that was diagnosed at [facility] this morning. Patient states he drove from [place] to [place] a week ago and several days ago noticed recurrent pain and swelling to his right calf. Per ultrasound report that patient has on his person, there is a DVT of R popliteal vein. Patient denies cough, hemoptysis, shortness of breath, chest pain or palpitations at this time see exam DVT of RLE s/p recent travel No resp sxs/CP to suspect PE, Stable here Basic labs done at [facility] shows Cr of 1.4 and plts of 244 (based on report pt has on person), no coags done but nl coags here 11/11 Will start on eliquis and discuss dispo w/ PMD 10/20/19 11:55 10/20/19 11:[address] Paiz who agrees with starting patient on Eliquis. States he will come down to ED to see patient in ED 10/20/19 12:03 Patient stable for discharge to continue to take Eliquis. Potential side effects discussed extensively with patient including with Dr. Paiz. Patient to continue follow-up with PMD 10/20/19 12:16 Dr. Pazi at bedside and will continue to follow-up with patient. Pt since given his first dose of Eliquis and is currently stable for discharge. Strict return precautions given to patient Discharge - Discharge Information Problems reviewed: Yes Clinical Impression/Diagnosis: DVT (deep venous thrombosis) Qualifiers: DVT location: lower extremity Affected thrombotic vein of extremity: peroneal Chronicity: acute Laterality: right Qualified Code(s): I82.451 - Acute embolism and thrombosis of right peroneal vein Condition: Good Disposition: HOME - Additional Discharge Information Prescriptions: Apixaban [Eliquis - Starter Pack (For VTE)] 5 mg PO UTDICT 30 Days #30 tab - Follow up/Referral Referrals: Mark Paiz MD [Primary Care Provider] - - Patient Discharge Instructions Patient Printed Discharge Instructions: Deep Vein Thrombosis Additional Instructions: You have a blood clot in your leg. You were started on an anticoagulant called Eliquis. Please take medications strictly as directed It is important to return to the ED for any bleeding as discussed and any headache dizziness nausea or vomiting as discussed today Continue follow-up with your PMD - Post Discharge Activity
[2019-10-20] MEDS ORDERED: APIXABAN 5 MG TABLET PO ONE ×2 (11:56→11:58)
--- NOTE | 2019-10-20 11:59 | PDOC ---
*Physical Exam - Vital Signs Last Vital Signs Temp Pulse Resp BP Pulse Ox 97.4 F L 60 16 155/91 97 10/20/19 10:45 10/20/19 10:45 10/20/19 10:45 10/20/19 10:45 10/20/19 10:45 Medical Decision Making - Medical Decision Making 10/20/19 11:58 Patient seen and evaluated with the nurse practitioner. I agree with the overall evaluation, assessment, and management with the following summary of visit: 64-year-old male diagnosed with peroneal DVT on ultrasound performed at urgent care, referred for treatment. Prompted with recent travel. Labs from outpatient are within normal limits, will follow-up CBC, discuss with Dr. Paiz PCP, and consider outpatient treatment. Discharge - Follow up/Referral Referrals: Mark Paiz MD [Primary Care Provider] - - Patient Discharge Instructions - Post Discharge Activity
[2019-10-20] MEDS ORDERED: APIXABAN 5 MG TABLET ONE (12:06)
== END 2019-10-20 12:30 | disposition home or self-care (01) ==
LOC: JER 10:40
DX: I82.431 Acute embolism and thrombosis of right popliteal vein (principal); I82.451 Acute embolism and thrombosis of right peroneal vein; I10 Essential (primary) hypertension; E78.5 Hyperlipidemia, unspecified; E11.9 Type 2 diabetes mellitus without complications; Z79.84 Long term (current) use of oral hypoglycemic drugs; Z88.5 Allergy status to narcotic agent
CPT/HCPCS: 99281-25

== ENCOUNTER 2019-11-01 07:22 | Emergency (ER) | payer OTHER, MEDICARE ==
[2019-11-01 07:28] VITALS: BP 123/70; PULSE 62; TEMP 98.3; BMI 28.6
--- NOTE | 2019-11-01 08:07 | PDOC ---
History of Present Illness - General Chief Complaint: Pain Stated Complaint: LEG PAIN Time Seen by Provider: 11/01/19 07:44 History Source: Patient Exam Limitations: No Limitations - History of Present Illness Initial Comments: 11/01/19 08:05 HPI 64-year-old male with history of hypertension, hyperlipidemia, diabetes, recent peroneal DVT on Eliquis (compliant with medications, 5mg BID), arthritis presenting with right calf pain since yesterday. He states he was standing for most of the day yesterday, denies any swelling or trauma. He initially was seen in the ED on 10/20/2019 after an urgent care visit and a duplex revealing right peroneal DVT, at that time started on Eliquis and has been evaluated by his primary doctor. at that time, believed to be provoked after travel to [place]. Denies fever, chills, chest pain, SOB, palpitation, dizziness, weakness, N, V, D , abdominal pain, focal weakness/paresthesias, leg swelling, rash. Allergies: meperidine Past Medical History/PSH: as above Social history: Lives with family. No tobacco, ETOH or drug use. Meds: as documented in EMR Family history: noncontributory PMD: Izabel Review of systems Constitutional: no fevers or chills. No weakness HEENT: no headache or dizziness. No congestion. No visual/hearing disturbances. CVS: no cp or syncope. Resp: no sob. No cough. Gastrointestinal: no abdominal pain, nausea, vomiting, diarrhea. MUSCULOSKELETAL: No joint pain and swelling. No neck or back pain. +leg pain. SKIN: no redness or skin changes, no discharge, no rash. No wounds. Hematologic: no easy bruising/bleeding. NEUROLOGIC: No headache, dizziness, LOC or altered mental status. No weakness, numbness or tingling. Allergic/Immunologic: no allergies All other systems reviewed and negative, or as documented in HPI. Physical exam General: Well appearing, awake and alert, NAD. HEENT: NCAT, PERRL, EOMI, clear conjunctiva, anicteric, moist mucus membranes, clear oropharynx, no oral lesions.. Neck: neck supple, FROM Resp: CTAB, normal and even respirations, no respiratory distress CVS: RRR, no murmurs, 2+ peripheral pulses throughout, no peripheral edema Abdomen: soft, NTND, no rebound or guarding. Back: nontender, normal inspection and ROM MSK: no edema, GE x4, ROM intact. No clubbing or cyanosis. normal bulk and tone. Extremities: +right lateral calf tenderness Neuro: alert, oriented appropriately; no focal neurologic deficits Psych: Calm and cooperative Skin: warm and well perfused, cap refill <2 sec, normal color, no rash or skin discoloration. right knee vertical scar Past History - Past Medical History Allergies/Adverse Reactions: Allergies Allergy/AdvReac Type Severity Reaction Status Date / Time meperidine HCl [From Demerol] Allergy Severe SYNCOPE Verified 11/01/19 07:28 Home Medications: Ambulatory Orders Losartan Potassium [Cozaar] 100 mg PO DAILY 05/15/13 Naproxen [Naprosyn -] 500 mg PO BID #20 tablet 06/21/16 Amlodipine Besylate 5 mg PO DAILY 10/29/18 Diazepam [Valium] 5 mg PO Q8H #12 tablet MDD 3 10/29/18 Ezetimibe 10 mg PO DAILY 10/29/18 Hydrochlorothiazide 12.5 mg PO DAILY 10/29/18 Metformin HCl [Glucophage] 500 mg PO DAILY 10/29/18 Metoprolol Tartrate 50 mg PO DAILY 10/29/18 Guaifenesin [Robitussin -] 10 ml PO Q4H PRN #1 cup 11/02/18 Valacyclovir HCl [Valtrex -] 1,000 mg PO TID 7 Days #21 tablet 11/02/18 Apixaban [Eliquis] 5 mg PO BID 11/01/19 Rosuvastatin [Crestor -] 10 mg PO DAILY 11/01/19 Cardiac Disorders: Yes (Arrythmia) COPD: No Diabetes: Yes HTN: Yes Hypercholesterolemia: Yes Other medical history: DVT right LE - Surgical History Appendectomy: Yes Orthopedic Surgery: Yes (2 screws R knee, L hand surgery) - Immunization History Immunization Up to Date: Yes - Psycho Social/Smoking Cessation Hx Smoking Status: No Smoking History: Never smoked Have you smoked in the past 12 months: No Number of Cigarettes Smoked Daily: 0 Hx Alcohol Use: Yes Drug/Substance Use Hx: No Substance Use Type: None Hx Substance Use Treatment: No *Physical Exam - Vital Signs Last Vital Signs Temp Pulse Resp BP Pulse Ox 98.3 F 62 18 123/70 97 11/01/19 07:23 11/01/19 07:23 11/01/19 07:23 11/01/19 07:23 11/01/19 07:23 ED Treatment Course - RADIOLOGY Radiology Studies Ordered: Category Date Time Status DUPLEX VASCUL US-1 LEG [US] Stat Ultrasound 11/01/19 08:01 Ordered Medical Decision Making - Medical Decision Making 11/01/19 08:50 Vital Signs Temp Pulse Resp BP Pulse Ox 98.3 F 62 18 123/70 97 11/01/19 07:23 11/01/19 07:23 11/01/19 07:23 11/01/19 07:23 11/01/19 07:23 Patient was seen here in the ED on 10/20/2019 with provoked DVT, currently on Eliquis and has been compliant with medications. No chest pain or shortness of breath, no dizziness or syncope. Repeat duplex reveals no evidence of calf DVT so likely the prior dvt has disintegrated appropriately. Will provide analgesia and follow-up with his primary doctor Dr. Paiz. If persistent symptoms return in 1 week for repeat ultrasound, patient already has an appointment planned for 11/09/2019. Discharge - Discharge Information Problems reviewed: Yes Clinical Impression/Diagnosis: Pain of right calf Condition: Good Disposition: HOME - Admission No - Follow up/Referral Referrals: Mark Paiz MD [Primary Care Provider] - - Patient Discharge Instructions Patient Printed Discharge Instructions: DI for Deep Vein Thrombosis Additional Instructions: Even though the ultrasound of your leg in the Emergency Department today shows no evidence of clot. Please follow up with your doctor(s) within the next 3 days , but seek medical care sooner if your symptoms persist or worsen. Please call as soon as possible for an appointment. If you cannot follow up with your doctor please return to the Emergency Department for any urgent issues. You were given a copy of the results from any tests performed today in the Emergency Department which have results available. Show these to your doctor(s) . Some of the tests we sent may not have results yet so please call or have your doctor call the Emergency Department to follow up on all results. If you have any worsening of symptoms or any other concerns please see your doctor or return to the Emergency Department immediately. Please continue taking your home medications as directed. Do not use alcohol when taking any medication ( especially antibiotics, tylenol or other pain medication) unless you check with the doctor or pharmacist. continue taking your eliquis as prescribed for the duration of time. compression stockings to your extremities to help with the pain and swelling. - Post Discharge Activity
[2019-11-01] MEDS ORDERED: IBUPROFEN 600 MG TABLET (FP) PO ONE ×2 (08:52→08:56)
== END 2019-11-01 09:00 | disposition home or self-care (01) ==
LOC: JER 07:22
DX: M79.661 Pain in right lower leg (principal); Z88.8 Allergy status to other drugs, medicaments and biological substances; E11.9 Type 2 diabetes mellitus without complications; I10 Essential (primary) hypertension; E78.00 Pure hypercholesterolemia, unspecified; Z86.718 Personal history of other venous thrombosis and embolism; Z79.01 Long term (current) use of anticoagulants
CPT/HCPCS: 93971-TC; 99282-25

== ENCOUNTER 2020-12-20 10:29 | Inpatient (IN) | payer OTHER, MEDICARE ==
[2020-12-20 10:51] VITALS: BMI 28.0
[2020-12-20] MEDS ORDERED: ASPIRIN 81 MG CHEWABLE TABLETS PO ONE (12:01)
[2020-12-20 12:08] LABS: BASO % 0.8 % (0-2.0); EOS % 2.9 % (0-4.5); HEMATOCRIT 45.7 % (35.4-49); HEMOGLOBIN 15.7 GM/dL (11.7-16.9); LYMPH % 21.7 % (8-40); MCH 31.1 pg (25.7-33.7); MCHC 34.3 g/dl (32.0-35.9); MEAN CELL VOLUME 90.6 fl (80-96); MEAN PLT VOLUME 7.6 fl (7.5-11.1); MONO % 10.1 % (3.8-10.2); NEUT % 64.5 % (42.8-82.8); PLATELET COUNT 259 K/MM3 (134-434); RBC 5.05 M/mm3 (4.00-5.60); RDW 13.8 % (11.9-15.9); WHITE BLOOD COUNT 6.2 K/mm3 (4.0-10.0)
[2020-12-20 12:18] LABS: INR 1.29 (0.83-1.09); PROTHROMBIN TIME (PATIENT) 15.7 SEC (9.7-13.0)
[2020-12-20 12:20] LABS: ACTIVATED PTT 30.1 SECONDS (25.2-36.5)
[2020-12-20 12:30] LABS: CHLORIDE 103 mmol/L (98-107); POTASSIUM 5.2 mmol/L (3.5-5.1); SODIUM 137 mmol/L (136-145)
[2020-12-20 12:32] LABS: ALBUMIN 4.2 g/dl (3.4-5.0); CALCIUM 9.5 mg/dL (8.5-10.1)
[2020-12-20 12:33] LABS: ANION GAP 3 MMOL/L (8-16); BLOOD UREA NITROGEN 23.8 mg/dL (7-18); CO2 31 mmol/L (21-32); GLUCOSE,RANDOM 107 mg/dL (74-106)
[2020-12-20 12:36] LABS: CREATININE 1.5 mg/dL (0.55-1.3); SGOT/AST 19 U/L (15-37); SGPT/ALT 28 U/L (13-61)
[2020-12-20 12:37] LABS: BILIRUBIN,TOTAL 0.9 mg/dL (0.2-1)
[2020-12-20 12:38] LABS: ALK PHOS 86 U/L (45-117)
[2020-12-20] MEDS ORDERED: ASPIRIN 81 MG CHEWABLE TABLETS ONE (12:41)
[2020-12-20] MEDS ORDERED: SODIUM CHLORIDE 1,000 ML IV STA (13:13)
[2020-12-20] MEDS ORDERED: ACETAMINOPHEN 325 MG TABLET (FP) PO PRN (13:24)
[2020-12-20] MEDS ORDERED: NITROGLYCERIN SUBLINGUAL 1/150 0.4 MG TAB SL PRN (15:42)
[2020-12-20] MEDS ORDERED: RIVAROXABAN 20 MG TABLET PO SCH (18:00)
[2020-12-20] MEDS ORDERED: APIXABAN 5 MG TABLET PO SCH (22:00)
[2020-12-20] MEDS ORDERED: RANOLAZINE E.R. 500 MG TABLET (FP) PO SCH (22:00)
[2020-12-20] MEDS ORDERED: ROSUVASTATIN CA 10 MG TABLET (FP) PO SCH (22:00)
[2020-12-21 07:04] LABS: BASO % 0.7 % (0-2.0); HEMOGLOBIN 14.6 GM/dL (11.7-16.9); LYMPH % 18.5 % (8-40); MCH 31.1 pg (25.7-33.7); MCHC 34.8 g/dl (32.0-35.9); MEAN CELL VOLUME 89.6 fl (80-96); MEAN PLT VOLUME 7.8 fl (7.5-11.1); MONO % 10.3 % (3.8-10.2); NEUT % 66.5 % (42.8-82.8); PLATELET COUNT 223 K/MM3 (134-434); RBC 4.69 M/mm3 (4.00-5.60); RDW 13.6 % (11.9-15.9); WHITE BLOOD COUNT 6.7 K/mm3 (4.0-10.0)
[2020-12-21 07:19] LABS: POTASSIUM 4.4 mmol/L (3.5-5.1)
[2020-12-21 07:21] LABS: ALBUMIN 3.7 g/dl (3.4-5.0); BLOOD UREA NITROGEN 20.6 mg/dL (7-18)
[2020-12-21 07:22] LABS: MAGNESIUM 2.1 mg/dL (1.8-2.4)
[2020-12-21 07:24] LABS: CREATININE 1.2 mg/dL (0.55-1.3)
[2020-12-21 07:25] LABS: PHOSPHOROUS 3.6 mg/dL (2.5-4.9)
[2020-12-21 07:26] LABS: BILIRUBIN,TOTAL 1.4 mg/dL (0.2-1); TOT PROT 6.9 g/dl (6.4-8.2)
[2020-12-21] MEDS ORDERED: amLODIPine BESYLATE 5 MG TABLET (FP) PO SCH (10:00)
[2020-12-21] MEDS ORDERED: ASPIRIN 81 MG CHEWABLE TABLETS PO SCH (10:00)
[2020-12-21] MEDS ORDERED: EZETIMIBE 10 MG TABLET (FP) PO SCH (10:00)
[2020-12-21] MEDS ORDERED: PANTOPRAZOLE 40 MG TABLET PO SCH (10:00)
[2020-12-21] MEDS ORDERED: METOPROLOL TARTRATE 50 MG TABLET (FP) PO SCH (10:00)
[2020-12-21] MEDS ORDERED: HYDROCHLOROTHIAZIDE 12.5 MG CAPSULE (FP) PO SCH (10:00)
[2020-12-21] MEDS ORDERED: LOSARTAN POTASSIUM 50 MG TABLET PO SCH (10:00)
[2020-12-21] MEDS ORDERED: LOSARTAN POTASSIUM 100 MG TABLET PO SCH (10:00)
[2020-12-21 10:02] VITALS: BP 125/79; PULSE 58; TEMP 97.7
== END 2020-12-21 10:28 | disposition home or self-care (01) | DRG 303 ==
LOC: JER 10:29 → JERBED 13:30
PROVIDERS: ADMIT Internal Medicine; ATTEND Internal Medicine
DX: I25.110 Atherosclerotic heart disease of native coronary artery with unstable angina pectoris (principal); I10 Essential (primary) hypertension; E11.9 Type 2 diabetes mellitus without complications; E78.5 Hyperlipidemia, unspecified; Z86.718 Personal history of other venous thrombosis and embolism; Z86.711 Personal history of pulmonary embolism; Z79.01 Long term (current) use of anticoagulants; Z79.84 Long term (current) use of oral hypoglycemic drugs; I44.0 Atrioventricular block, first degree; I48.0 Paroxysmal atrial fibrillation
CPT/HCPCS: 36415; 71046-TC-FY; 80053; 82550; 83735; 84100; 84484; 85025; 85610; 85730; 93005; 93010; 99285-25; C9803; U0003

== ENCOUNTER 2021-05-07 13:05 | Observation (INO) | payer OTHER, MEDICARE ==
[2021-05-07] MEDS ORDERED: SODIUM CHLORIDE 1,000 ML IV STA (13:50)
[2021-05-07 14:15] LABS: BASO % 1.8 % (0-2.0); EOS % 3.6 % (0-4.5); HEMATOCRIT 39.9 % (35.4-49); HEMOGLOBIN 13.7 GM/dl (11.7-16.9); LYMPH % 21.9 % (8-40); MCH 32.2 pg (25.7-33.7); MCHC 34.4 g/dl (32.0-35.9); MEAN CELL VOLUME 93.5 fl (80-96); MEAN PLT VOLUME 7.9 fl (7.5-11.1); NEUT % 59.7 % (42.8-82.8); PLATELET COUNT 242 K/MM3 (134-434); RBC 4.27 M/mm3 (4.00-5.60); RDW 12.9 % (11.9-15.9); WHITE BLOOD COUNT 5.1 K/mm3 (4.0-10.8)
[2021-05-07 14:20] LABS: ALBUMIN 3.9 g/dl (3.4-5.0); ALK PHOS 84 U/L (45-117); ANION GAP 7 MMOL/L (8-16); BILIRUBIN,TOTAL 0.6 mg/dl (0.2-1); CHLORIDE 103 mmol/L (98-107); CO2 27 mmol/L (21-32); CREATININE 1.4 mg/dl (0.55-1.3); GLUCOSE,RANDOM 110 mg/dl (74-106); SGOT/AST 22 U/L (15-37); SGPT/ALT 25 U/L (13-61); SODIUM 137 mmol/L (136-145); TOT PROT 6.9 g/dl (6.4-8.2)
[2021-05-07] MEDS ORDERED: SODIUM CHLORIDE 1,000 ML IV SCH (15:30)
[2021-05-07] MEDS ORDERED: ACETAMINOPHEN 325 MG TABLET (FP) PO PRN (16:06)
[2021-05-07] MEDS ORDERED: INSULIN SLIDING SCALE (NOVOLOG) 1 VIAL SQ SCH (16:30)
[2021-05-07] MEDS ORDERED: RIVAROXABAN 20 MG TABLET PO SCH (18:00)
[2021-05-07 18:02] VITALS: BMI 30.9
[2021-05-07] MEDS: INSULIN SLIDING SCALE (NOVOLOG) 1 VIAL SQ SCH (21:11)
[2021-05-07] MEDS: RANOLAZINE E.R. 500 MG TABLET (FP) PO SCH (21:12)
[2021-05-07] MEDS: AMOXICILLIN 500 MG CAPSULE (FP) PO SCH (21:12)
[2021-05-07] MEDS ORDERED: EZETIMIBE 10 MG TABLET (FP) PO SCH (22:00)
[2021-05-07] MEDS ORDERED: ROSUVASTATIN CA 20 MG TABLET (FP) PO SCH (22:00)
[2021-05-08] MEDS: INSULIN SLIDING SCALE (NOVOLOG) 1 VIAL SQ SCH ×2 (06:44→11:54)
[2021-05-08 08:16] LABS: HEMATOCRIT 38.1 % (35.4-49); HEMOGLOBIN 12.6 GM/dl (11.7-16.9); MCH 31.2 pg (25.7-33.7); MCHC 33.1 g/dl (32.0-35.9); MEAN CELL VOLUME 94.2 fl (80-96); PLATELET COUNT 208 K/MM3 (134-434); RBC 4.05 M/mm3 (4.00-5.60); RDW 12.5 % (11.9-15.9); WHITE BLOOD COUNT 4.3 K/mm3 (4.0-10.8)
[2021-05-08 09:09] LABS: CALCIUM 8.5 mg/dl (8.5-10); CREATININE 1.3 mg/dl (0.55-1.3)
[2021-05-08] MEDS: RANOLAZINE E.R. 500 MG TABLET (FP) PO SCH (09:45)
[2021-05-08] MEDS: AMOXICILLIN 500 MG CAPSULE (FP) PO SCH (09:45)
[2021-05-08 09:54] VITALS: BP 115/69; PULSE 58; TEMP 98.2
[2021-05-08] MEDS ORDERED: ASPIRIN 81 MG CHEWABLE TABLETS PO SCH (10:00)
[2021-05-08] MEDS ORDERED: amLODIPine BESYLATE 5 MG TABLET (FP) PO SCH (10:00)
[2021-05-08] MEDS ORDERED: PANTOPRAZOLE 40 MG TABLET PO SCH (10:00)
== END 2021-05-08 12:47 | disposition short-term general hospital (02) ==
LOC: FER 13:05 → FM/S 13:49
PROVIDERS: ADMIT Internal Medicine; ATTEND Nurse Practitioner Acute Care
PROC: 3E0337Z Introduction of Electrolytic and Water Balance Substance into Peripheral Vein, Percutaneous Approach (ICD-10-PCS; principal; 2021-05-07)
DX: I48.91 Unspecified atrial fibrillation (principal); R07.89 Other chest pain; E11.9 Type 2 diabetes mellitus without complications; I10 Essential (primary) hypertension; E78.5 Hyperlipidemia, unspecified; K57.90 Diverticulosis of intestine, part unspecified, without perforation or abscess without bleeding; Z86.718 Personal history of other venous thrombosis and embolism; U07.1 COVID-19; A87.9 Viral meningitis, unspecified; N17.9 Acute kidney failure, unspecified; Z88.8 Allergy status to other drugs, medicaments and biological substances; Z79.01 Long term (current) use of anticoagulants; R07.9 Chest pain, unspecified
CPT/HCPCS: 36415; 71045-TC-FY; 71275-TC; 80048; 80053; 80061; 82962; 83735; 84443; 84484; 85025; 85027; 93005; 96360; 99285-25; C9803; G0378; Q9967; U0003; U0005

== ENCOUNTER 2021-08-04 20:58 | Emergency (ER) | payer OTHER, MEDICARE ==
[2021-08-04 21:06] VITALS: BP 132/79; PULSE 85; TEMP 98; BMI 27.3
[2021-08-04 22:32] LABS: BASO % 0.9 % (0-2.0); EOS % 1.1 % (0-4.5); HEMATOCRIT 33.7 % (35.4-49); HEMOGLOBIN 11.6 GM/dL (11.7-16.9); LYMPH % 12.3 % (8-40); MCH 29.3 pg (25.7-33.7); MCHC 34.4 g/dl (32.0-35.9); MEAN PLT VOLUME 8.4 fl (7.5-11.1); MONO % 17.9 % (3.8-10.2); NEUT % 67.8 % (42.8-82.8); PLATELET COUNT 322 10^3/uL (134-434); RBC 3.97 M/mm3 (4.00-5.60); RDW 14.8 % (11.9-15.9); WHITE BLOOD COUNT 9.2 K/mm3 (4.0-10.0)
[2021-08-04 22:58] LABS: CALCIUM 8.1 mg/dL (8.5-10.1)
[2021-08-04 22:59] LABS: ALBUMIN 2.5 g/dl (3.4-5.0); BLOOD UREA NITROGEN 13.6 mg/dL (7-18)
[2021-08-04 23:02] LABS: CREATININE 1.3 mg/dL (0.55-1.3)
[2021-08-04 23:03] LABS: BILIRUBIN,TOTAL 0.5 mg/dL (0.2-1)
[2021-08-04 23:24] LABS: EPI CELLS 2 /uL (0-25.1); HYALINE CASTS 2 /uL (0-3.1); URINE APPEARANCE CLOUDY; URINE BACTERIA 55 /uL (0-1359); URINE BILIRUBIN NEGATIVE (NEGATIVE); URINE COLOR YELLOW; URINE GLUCOSE (UA) NEGATIVE (NEGATIVE); URINE KETONE NEGATIVE (NEGATIVE); URINE LEUK ESTERASE 3+ (NEGATIVE); URINE NITRITE NEGATIVE (NEGATIVE); URINE PROTEIN NEGATIVE (NEGATIVE); URINE RBC 15 /uL (0-23.9); URINE UROBILINOGEN 0.2 mg/dL (0.2-1.0); URINE WBC 679 /uL (0-25.8)
== END 2021-08-04 23:40 | disposition home or self-care (01) ==
LOC: JER 20:58
DX: N45.1 Epididymitis (principal); N43.3 Hydrocele, unspecified
CPT/HCPCS: 36415; 76870-TC; 80053; 81003; 85025; 87086; 87491; 87591; 99284-25

== ENCOUNTER 2021-11-03 08:26 | Emergency (ER) | payer OTHER, MEDICARE ==
[2021-11-03 09:04] VITALS: BP 157/85; PULSE 67; TEMP 97.9; BMI 28.0
[2021-11-03] MEDS ORDERED: METHOCARBAMOL 500 MG TABLET PO ONE (09:32)
[2021-11-03] MEDS ORDERED: LIDOCAINE 5% TOPICAL PATCH TP ONE (09:32)
[2021-11-03] MEDS ORDERED: LIDOCAINE 5% TOPICAL PATCH ONE (10:04)
[2021-11-03] MEDS ORDERED: METHOCARBAMOL 500 MG TABLET ONE (10:04)
[2021-11-03] MEDS ORDERED: LIDOCAINE PATCH REMOVAL MC ONE (22:00)
== END 2021-11-03 10:50 | disposition home or self-care (01) ==
LOC: JERFT 08:26
DX: M25.512 Pain in left shoulder (principal)
CPT/HCPCS: 73030-TC-LT-FY; 93005; 93010; 99284-25

== ENCOUNTER 2025-01-11 09:38 | Emergency (ER) | payer OTHER, MEDICARE ==
[2025-01-11 09:46] VITALS: RESP 16; TEMP 97.6; BMI 28.8
[2025-01-11] MEDS ORDERED: ACETAMINOPHEN INJECTION 100 ML ONE (11:21)
[2025-01-11] MEDS ORDERED: METOCLOPRAMIDE HCL INJECTION 10 MG/2 ML VIAL ONE (11:21)
[2025-01-11] MEDS: ACETAMINOPHEN 1000 MG/100 ML BAG IVPB ONE (11:30)
[2025-01-11] MEDS: SODIUM CHLORIDE 500 ML IV STA (11:30)
[2025-01-11] MEDS: METOCLOPRAMIDE HCL INJECTION 10 MG/2 ML VIAL IVPUSH ONE (11:31)
[2025-01-11 11:38] LABS: URINE APPEARANCE CLEAR; URINE BILIRUBIN NEGATIVE (NEGATIVE); URINE COLOR YELLOW; URINE GLUCOSE (UA) NEGATIVE (NEGATIVE); URINE KETONE NEGATIVE (NEGATIVE); URINE LEUK ESTERASE NEGATIVE (NEGATIVE); URINE NITRITE NEGATIVE (NEGATIVE); URINE PROTEIN NEGATIVE (NEGATIVE); URINE UROBILINOGEN 0.2 mg/dL (0.2-1.0)
[2025-01-11 11:39] LABS: POTASSIUM 4.7 mmol/L (3.5-5.1)
[2025-01-11 11:43] LABS: CALCIUM 9.4 mg/dL (8.5-10.1)
[2025-01-11 11:47] LABS: BASO % 0.6 % (0-2.0); CREATININE 1.2 mg/dL (0.55-1.3); EOS % 2.6 % (0-4.5); HEMATOCRIT 40.9 % (35.4-49); HEMOGLOBIN 13.6 GM/dL (11.7-16.9); LYMPH % 21.5 % (8-40); MCHC 33.1 g/dl (32.0-35.9); MEAN CELL VOLUME 87.4 fl (80-96); MEAN PLT VOLUME 7.9 fl (7.5-11.1); MONO % 11.4 % (3.8-10.2); NEUT % 63.9 % (42.8-82.8); PLATELET COUNT 216 10^3/uL (134-434); RBC 4.68 M/mm3 (4.00-5.60); RDW 15.5 % (11.9-15.9)
[2025-01-11 11:48] LABS: BILIRUBIN,TOTAL 0.6 mg/dL (0.2-1); TOT PROT 7.6 g/dl (6.4-8.2)
[2025-01-11 11:52] LABS: N-TERMINAL BNP 476.6 pg/ml (5-125)
[2025-01-11 13:03] VITALS: BP 130/63; PULSE 55
== END 2025-01-11 17:26 | disposition home or self-care (01) ==
LOC: JER 09:38
PROC: 3E033NZ Introduction of Analgesics, Hypnotics, Sedatives into Peripheral Vein, Percutaneous Approach (ICD-10-PCS; principal; 2025-01-11)
PROC: 3E033GC Introduction of Other Therapeutic Substance into Peripheral Vein, Percutaneous Approach (ICD-10-PCS; 2025-01-11)
PROC: 3E0337Z Introduction of Electrolytic and Water Balance Substance into Peripheral Vein, Percutaneous Approach (ICD-10-PCS; 2025-01-11)
DX: R51.9 Headache, unspecified (principal); Z20.822 Contact with and (suspected) exposure to COVID-19
CPT/HCPCS: 0241U-QW; 36415; 70450-TC; 71045-TC-FY; 80053; 81003; 83735; 83880; 84443; 84484; 85025; 87086; 93005; 93010; 99285-25; J0131